=== PATIENT | female | born 1960 | race Caucasian/White ===

== ENCOUNTER 2021-05-04 01:20 | Day surgery (SDC) | payer OTHER, SELFPAY ==
[2021-05-03 15:04] VITALS: BMI 25.7
--- NOTE | 2021-05-03 15:19 | PC.NURSE ---
Report to the Outpatient Waiting Room, entrance under the green pavilion located off [facility], at time 1200 on date 05/04/21. OR Time: 1400. - You will be asked a series of questions to screen for COVID 19 for your protection. - A mask is required within the hospital. - No visitors are allowed at this time. Preoperative COVID Testing Requirements: No COVID Test needed if: (proof is required; if not received patient will have Rapid Test prior to entry) - Patient has received COVID Vaccine at least 14 days prior to procedure date or - Patient has positive COVID test result within last 90 days of surgery date. COVID Test needed if above criteria is not met Patients may have clear liquids (water, carbonated beverages, clear teas, apple juice) until 3 hours prior to surgery with a maximum of 20 ounces. - No food from midnight until time of surgery Take the following medications with a SIP of water the morning of surgery: XANAX (IF NEEDED), WELLBUTRIN, LEVOTHYROXINE, PAIN PILL (IF NEEDED) Medications to discontinue per physician: VITAMINS/SUPPLEMENTS Date to take last dose: NOW Please no make-up, nail turkish, hairspray, perfume, deodorant, or body powder the day of surgery. No jewelry (including any body piercings) or valuables the day of surgery, leave them at home. Please take a shower or bath the night before, or the morning of, surgery with an antibacterial soap. Wear comfortable, loose fitting clothing. - Jewelry must be removed prior to entering the operating room. Rings and piercings that are not removed may be cut off. - The hospital will not accept responsibility for valuables. - Please leave all valuables, including medications, at home the day of surgery. If you are going home after surgery, a licensed drivers license examiner must drive you home. - NO public transportation without another adult. - We recommend that an adult stay with you for 24 hours following discharge. - We also recommend that you do not drive, make important decision, drink alcoholic beverages, or take any drugs that were not prescribed by your health care provider for at least 24 hours after your discharge time. Follow any additional instructions given to you from your surgeon. Telephone instructions given to RADHA MULTANI and asked if any additional questions and then verbalized understanding. Patient advised to call surgeon office or pre surgery nurse liaison [phone] if any additional questions.
[2021-05-04] VITALS (8 sets, daily range): BP systolic 100–114; BP diastolic 60–81; PULSE 75–90; RESP 12–18; TEMP 36.1–37.2; O2SAT 96–99
--- NOTE | ~2021-05-04 | XR_ITS ---
EXAMINATION: XR surgery orthopedic EXAM DATE: 05/04/2021 16:03 INDICATION: Right wrist ORIF. TECHNIQUE: Fluoroscopy used during right radial ORIF performed by Dr. Gasper Canchola MD. Radiolog ist was not present for the imaging or procedure. Total fluoroscopic time of 32 seconds. The DAP fo r this procedure was 0.02 mGym2. A total of 3 images sent to PACS from the exam. FINDINGS: Frontal and lateral images demonstrate comminuted right radial distal fracture with interv al reduction and placement of orthopedic plate dorsally and supporting screws. Correlate with proced ure note. IMPRESSION: Fluoroscopy used during right radial ORIF. Reviewed, dictated and finalized at location A. IC TRANSIT SPECIALIST
--- NOTE | 2021-05-04 12:38 | WPDANESEPPF ---
Anes - Initial Pre Proc Eval Procedure: Operation Date: 05/04/21 14:00 Proposed Procedures p Open Reduction Internal Fixation Versus External Fixation Right Distal Radius - Gasper Canchola MD Date/Time: 05/04/21 12:38 Surgeon: Gasper Canchola MD Pre Op Diagnosis: right distal radius fx Patient Data Age: 61 Gender: F Height: 1.71 m Weight: 75.75 kg Allergies Allergy/AdvReac Type Severity Reaction Status Date / Time No Known Drug Allergies Allergy Unknown unknown Verified 05/04/21 12:24 Home Medications Medication Instructions Recorded Confirmed Type alprazolam 0.5 mg tablet 0.5 mg PO TID 05/03/21 05/04/21 History bupropion HCl 300 mg 24 hr tablet, 300 mg PO QAM 05/03/21 05/04/21 History extended release cholecalciferol (vitamin D3) 125 mcg PO DAILY 05/03/21 05/04/21 History [Vitamin D3] levothyroxine 125 mcg tablet 125 mcg PO DAILY 05/03/21 05/04/21 History propylene glycol 0.6 % eye drops 1 drp EACH EYE BID PRN 05/03/21 05/04/21 History trazodone 50 mg tablet 50 mg PO QHS PRN 05/03/21 05/04/21 History vitamin B complex [B 1 tablet PO DAILY 05/03/21 05/04/21 History Complex-Vitamin B12] Patient hx anesthesia problems: post op nausea/vomiting Family hx anesthesia problems: none Results Review: All pre-operative results and documents have been reviewed as part of the pre-operative evaluation. PENDING SALE TO [facility] Past Medical History Medical History Anxiety Distal radius fracture, right GERD (gastroesophageal reflux disease) Thyroid disease Surgical History Surgical History History of breast surgery History of skin surgery History of subtotal thyroidectomy Family History Family History Mother Family history of diabetes mellitus in first degree relative Diabetes mellitus Hypertension Heart disease Father Family history of alcoholism Other Depression Social History Social History Smoking status: Former smoker Tobacco type: cigarettes Additional smoking assessment comments: OFF AND ON SOCIAL SMOKER IN THE PAST Alcohol intake: current Drinks per week: 2 Substance use: never Substance use type: does not use Living arrangements: with family Gender identity (if verbalized by the patient): Female Spiritual care concerns: No Anes - Eval Final PreProcedure Day of Procedure 05/04/21 12:38 Patient weight: normal Heart: regular rate and rhythm Lungs: clear to auscultation Airway: Mallampati scale class II Neurological: alert and oriented Last oral intake: >/= 8 hours ASA classification: II Emergent: no Anesthetic plan: proceed Anesthesia type and monitoring: general LMA and standard monitoring Results Review: All pre-operative results and documents have been reviewed as part of the pre-operative evaluation. Informed Consent: The patient's anesthetic plan and its attendant risks and benefits were discussed with the patient/family/POA. Questions were solicited and answers provided to the satisfaction of the patient/family/POA.
--- NOTE | 2021-05-04 12:49 | WPDHPUPDATE1 ---
History and Physical Update Update Date/Time: 05/04/21 12:49 History and Physical has been reviewed, including an updated exam of the patient. There are NO changes in the patient's condition. Risks, benefits, and alternatives have been discussed and questions answered. Patient agrees to proceed with procedure.
[2021-05-04] MEDS: KETOROLAC 15 MG/ML VIAL (*BKC) IV PUSH (12:53)
[2021-05-04] MEDS: ACETAMINOPHEN 500 MG TABLET 1000 MG PO (12:53)
[2021-05-04] MEDS: SCOPOLAMINE 1.5 MG PATCH TRANSDERM (12:53)
[2021-05-04] MEDS: LACTATED RINGERS 1,000 ML 30 ML IV CONT (12:54)
--- NOTE | 2021-05-04 13:01 | WPDANESPNB ---
Anes - Peripheral Nerve Block Date/Time: 05/04/21 13:01 I have discussed with the patient/family/POA the placement of a peripheral nerve block for post-operative pain management, including associated risks, benefits, complications, and side effects. Alternative methods of post-operative analgesia were detailed. Questions were solicited and answers provided to the satisfaction of the patient/family/POA. Time-Out: A pre-procedural Time-Out was completed immediately before starting the procedure and confirmed: Patient Identification, Site, Procedure, Patient Position and the Availability of Requisite Equipment. Clinical Indications: Acute post-operative pain management requested by the operative surgeon. Nerve Block Insertion Note Anes-nerve block: supraclavicular right Needle: 22 gauge, stimulating, insulated echogenic needle. Needle length: 50 mm Technique: nerve stimulation lost at (mA) and ultrasound Technique comment: mid2mg morphine 10mg Injectate: bupivacaine 0.5% with epi 5 mcg/ml (30ml no epi) and dexamethasone (mg) (4) Observations: tolerated well Complications: none Procedure start time:: 1250 Procedure end time:: 1257
[2021-05-04] MEDS: ceFAZolin 2 GM/D5W 50 ML 2 GM/50 ML BAG IVPB (13:22)
--- NOTE | 2021-05-04 14:59 | P.OP_ITS ---
Procedure Note - Detailed Date of Procedure 05/04/21 Pre-op Diagnosis Comminuted intra-articular right distal radius fx Post-op Diagnosis same Procedure Performed ORIF right distal radius fracture Surgeon Gasper Canchola MD Family Practice Physician Assistant Sue Anesthesia general and regional Description of Procedure The patient was identified and the proper side identified. In the preop holding area, the anesthesia team performed a right upper extremity block. She was taken back to the operating room, transferred to the or table positioning supine taking care to pad her torso and extremities. After general anesthetic induction and intubation, a nonsterile tourniquet was placed high on the right arm which was prepped and draped in the usual sterile fashion. The extremity was exsanguinated and tourniquet inflated to 200 mmHg remaining up for approximately 50 minutes. A volar longitudinal incision was made along the FCR tendon distally. The subcutaneous tissue was sharply dissected protecting neurovascular structures. The FCR tendon was released from its sheath and retracted ulnarly. This allowed for the deep fascia of the forearm to be divided longitudinally in line with the incision. Care was taken to protect the volar compartment structures as well as the radial nerve and radial vascular structures. The pronator quadratus was elevated off of the distal radius allowing for inspection of the fracture site. The fracture fragments were disimpacted and able to be realigned virtually anatomically with fluoroscopic assistance. They were secured in this position with a right, wide, short plate from the DVR set. The plate was applied with fluoroscopic visualization to avoid penetration of the joint and to ensure optimal hardware placement. Once the plate was secure the overall construct was assessed fluoroscopically on the AP and lateral views. The virtually anatomic reduction was held very nicely. The construct was stable. The wound was irrigated with a copious amount of sterile antibiotic solution. Skin edges were reapproximated with 2-0 Quill and then tissue adhesive for the skin. Sterile dressing was applied. Tourniquet was released. A well-padded short-arm volar wrist splint was fashioned. The procedure was well tolerated. There were no known intraoperative complications. Estimated blood loss was negligible. Estimated Blood Loss 10 Tourniquet Time 50 Drains No Packing No Pathology none sent Complications No immediate complications Condition stable Disposition PACU
[2021-05-04] MEDS: ONDANSETRON INJ 4 MG/2 ML VIAL IV PUSH (16:00)
== END 2021-05-04 16:45 | disposition home or self-care (01) ==
PROVIDERS: Visit Provider Orthopaedic Surgery
PROC: (CPT 25575; principal; 2021-05-04 14:00)
DX: S52.571A Other intraarticular fracture of lower end of right radius, initial encounter for closed fracture (principal); G89.18 Other acute postprocedural pain; W19.XXXA Unspecified fall, initial encounter; K21.9 Gastro-esophageal reflux disease without esophagitis; E07.9 Disorder of thyroid, unspecified; F41.9 Anxiety disorder, unspecified; Z87.891 Personal history of nicotine dependence
CPT/HCPCS: 25608; 64415; A4565; A9270; C1713; J0690; J1100; J1885; J2250; J2270; J2405; J2704; J7120

== ENCOUNTER 2021-07-25 09:00 | Outpatient (RCR) | payer OTHER, SELFPAY ==
--- NOTE | 2021-06-26 11:07 | OTOPEVAL ---
OCCUPATIONAL THERAPY EVALUATION REPORT 06/26/21 Thank you for referring Lizzeth Aaron to [facility].? The patient is scheduled to be seen for therapy? 1-2x/week for 4 weeks. Please review, sign, date and return this plan of care MANE. I agree with and certify that the following plan of care is medically necessary. Referring Physician Date Referring Provider: Gasper Canchola MD *OT Outpatient Evaluation Start: 06/26/21 10:04 Therapy Assessment Status Assessment Status Assessment Status Evaluation Outpatient Past Medical History Past Medical History Source of Past Medical History Recalled from Previous Visit, Confirmed with Patient/Family Neurological History Hx Neurological Disorders No Significant History Cardiovascular History Hx Cardiac Disorders No Significant History Respiratory History Hx COVID-19 Yes: JAN 2021 - LOSS OF TASTE/ SMELL, FEVER, NAUSEA Gastrointestinal History Hx Gastrointestinal Disorders No Significant History Genitourinary History Hx Genitourinary Disorders No Significant History Musculoskeletal History Hx Back Pain Yes: LOWER Hx Fractures Yes: RT WRIST Hematological History Hx Hematological Disorders No Significant History Endocrine History Hx Hypothyroidism Yes Hx Thyroidectomy Yes: PARTIAL D/T BENIGN MASS HEENT History Hx HEENT Disorders No Significant History Integumentary History Hx Skin Disorders No Significant History Reproductive History Hx Post Menopausal Yes Psychosocial History Hx Anxiety Yes Pain History History of Any Previous or Ongoing No Significant History Instance of Pain Anesthesia History Hx Anesthesia Reactions No Significant History Other History Hx Other Surgeries Yes: LT BREAST NODULE REMOVED Evaluation Information Problem Diagnosis Right distal radius fracture Additional Evaluation Detail ORIF 05/04/20 Subjective Information 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 She is to Family follow up with MD on 07/27/21 to see if she is ready to return to work. At home she reports she is heavily favoring the left hand and adapting how she uses the right. Difficulties with feeding herself and any sort of lifting. She is starting her car with the left hand. 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
--- NOTE | 2021-07-25 09:33 | OTOPEVAL ---
OCCUPATIONAL THERAPY RE-EVALUATION REPORT AND DISCHARGE NOTE 07/25/21 Lizzeth is just shy of 12 weeks post ORIF of a right distal radius fracture. She has attended 6 therapy sessions and has made excellent progress with ROM and functional strength. At this time she is currently independent with HEP to continue to work on her residual deficits and is ready for discharge. Thank you for referring Lizzeth Aaron to [facility]. Please review, sign, date and return this D/C Note MANE. I agree with and certify that the following plan of care is medically necessary. Referring Physician Date Referring Provider: Gasper Canchola MD Re-Evaluation Information Diagnosis Right distal radius fracture Additional Evaluation Detail ORIF 05/04/20 Subjective Information Lizzeth reports improved Query Text:As Reported By Patient/ mobility and strength over the Family past month. She states she is now using her right hand to feed herself and start her car . She is progressing with lifting her coffee pot, stating it's 90% better . She is back to doing yard work. Pain Assessment Timing of Pain Assessment Timing of Pain Assessment Re-assessment Pain Scale Pain Scale Used Numeric (1 - 10) Self Report Pain Assessment Right Wrist(s) Reported Pain Level 2 Pain Description Aching Other Pain Description Stiff Lowest Pain Intensity 2 Greatest Pain Intensity 4 Pain Score Pain Score 2: Self Report Interventions Used Interventions Used By Clinicians Education,Exercise,Paraffin Upper Extremity Range of Motion Elbow/Forearm Range of Motion Right Forearm Supination - Active 80 Forearm Pronation - Active 85 Elbow/Forearm Range of Motion Comments Supination improved from 50* Pronation improved from 75* Wrist Range of Motion Right Wrist Flexion - Active 60 Wrist Flexion - Passive 67 Wrist Extension - Active 50 Wrist Extension - Passive 60 Wrist Radial Deviation - Active 20 Wrist Ulnar Deviation - Active 25 Wrist Range of Motion Comments Flexion improved from 45* Extension improved from 20* RD improved from 10* UD improved from 15* Finger Range of Motion Right Reason Not Measured WNL/Right Thumb Range of Motion Right Reason Not Measured WNL/Right Hand Habilitation Training Specialist/Pinch Strength Assessment Hand Left Habilitation Training Specialist Strength (lbs) 71 Hand Habilitation Training Specialist/Pinch Strength Comments Norm: 48 lbs. Right Habilitation Training Specialist Strength (lbs) 38 Hand Habilitation Training Specialist/Pinch Strength Comments Norm: 51 lbs. Patient is currently
== END 2021-07-26 08:40 | disposition home or self-care (01) ==
LOC: ANHOT 09:00
PROVIDERS: Visit Provider Orthopaedic Surgery
DX: S52.571D Other intraarticular fracture of lower end of right radius, subsequent encounter for closed fracture with routine healing (principal)
CPT/HCPCS: 97018; 97110; 97165

== ENCOUNTER 2021-08-02 10:13 | Outpatient (CLI) | payer OTHER, SELFPAY ==
--- NOTE | ~2021-08-02 | DEXA_ITS ---
Bone Density Report Name: RADHA MULTANI Age: 61 Sex: Female Ethnicity: White Date of : 1960 Indication: postmenopausal; screening for osteoporosis; height loss; prior fracture; Referring Provider: ANN RODRIGUEZ Study: Bone densitometry was performed. Exam Date: August 02, 2021 Accession number: [id number] Bone Density: Region BMD T-score Z-score Classification AP Spine(L1-L4) 0.894 -1.4 0.1 Osteopenia Femoral Neck (Left) 0.702 -1.3 0.0 Osteopenia Total Hip (Left) 0.821 -1.0 0.0 Normal Femoral Neck (Right) 0.689 -1.4 -0.1 Osteopenia Total Hip (Right) 0.855 -0.7 0.3 Normal Femoral Neck Mean 0.696 -1.4 -0.1 Osteopenia Total Hip Mean 0.838 -0.9 0.1 Normal World Health Organization criteria for BMD impression classify patients as: Normal (T-score at or above -1.0), Osteopenia (T-score between -1.0 and -2.5), or Osteoporosis (T-score at or below -2.5). 10-year Fracture Risk(1): Major Osteoporotic Fracture 14% Hip Fracture 1.1% Reported Risk Factors: [place] (), Neck BMD=0.689, BMI=26.6, previous fracture (1) FRAX(R) Version 3.08. Fracture probability calculated for an untreated patient. Fracture probability may be lower if the patient has received treatment. Clinical Information Provided by Patient: Has had a low trauma fracture Has used the following medications: Vitamin D, Calcium Patient maximum height was 68 Menopause Age: 56 No regular weight bearing exercise Drinks caffeinated beverages Onset of menses at age 15 Number of children 2 Impression: The patient has low bone mass, based on the Total Spine T-score. The patient has risk factors, including: previous fracture. Discussion: BONE DENSITY IS LOW AT ONE OR MORE SKELETAL SITES. This patient's lowest T-score is low at one or more skeletal sites. It meets the World Health Organization's (WHO) criteria for ?low bone mass? (T-score between -1.0 and -2.5). The patient's 10-year risk of fracture as calculated by FRAX is less than the threshold where pharmacological therapy is recommended by the National Osteoporosis Foundation (NOF). However, all treatment decisions require clinical judgment and consideration of individual patient factors, including patient preferences, comorbidities, previous drug use, risk factors not captured in the FRAX model (e.g., frailty, falls, vitamin D deficiency, increased bone turnover, interval significant decline in bone density) and possible under or overestimation of fracture risk by FRAX. The patient should follow a healthful lifestyle (good nutrition with adequate calcium and vitamin D, and appropriate weight-bearing exercise). Follow-Up: Consider repeating this study in 2 to 3 years to reassess this patient's status, or sooner if there is some new clin
== END 2021-08-02 10:14 | disposition home or self-care (01) ==
LOC: CHSIMG 10:17
PROVIDERS: Visit Provider Orthopaedic Surgery
DX: Z78.0 Asymptomatic menopausal state (principal)
CPT/HCPCS: 77080

== ENCOUNTER 2023-08-14 12:45 | Outpatient (CLI) | payer OTHER, SELFPAY ==
--- NOTE | ~2023-08-14 | XR_ITS ---
Right Knee Technique: AP, lateral, and sunrise views were obtained. Clinical History: Pain Findings: No fracture or dislocation is seen. Osseous alignment is anatomic. Minimal patellar spurrin g noted. Soft tissues are unremarkable. No joint effusion is seen. Impression: No acute abnormality. Minimal patellar spurring. Reviewed, dictated and finalized at [facility]. Impression: No acute abnormality. Minimal patellar spurring.
== END 2023-08-14 12:46 | disposition home or self-care (01) ==
LOC: ANHIMG 12:52
PROVIDERS: Visit Provider Internal Medicine
DX: M25.761 Osteophyte, right knee (principal)
CPT/HCPCS: 73564

== ENCOUNTER 2023-10-24 16:33 | Outpatient (CLI) | payer OTHER, SELFPAY ==
--- NOTE | ~2023-10-24 | MR_ITS ---
EXAMINATION: MR ankle RT wo con DATE: 10/24/2023 17:31 INDICATION: Right ankle pain, fall one month ago. TECHNIQUE: Magnetic resonance imaging (MRI) of the right ankle was performed without intravenous cont rast. Sequences included sagittal, coronal, and axial proton-density weighted fast spin echo without and with fat saturation. COMPARISON: None. FINDINGS: Medial ankle ligaments: Deep and superficial deltoid ligaments as well as the spring ligament are normal. Lateral ankle ligaments: The anterior and posterior inferior tibiofibular ligaments are normal. The anterior talofibular, calc aneofibular and posterior talofibular ligaments are normal. Tendons: Achilles tendon is normal. Thickening and intermediate signal intensity within the peroneus longus te ndon as it passes under the foot. Thinning and abnormal intermediate signal in the distal peroneus br isak tendon. The tibialis anterior and extensor hallucis longus and extensor digitorum longus tendons are normal. The tibialis posterior, and flexor digitorum longus are normal. Fluid within the sheath of the flexor pollicis longus extending from the level of the ankle joint to the knot of Herminio. The F HL tendon is intact. Plantar fascia: Plantar enthesopathy. Mild thickening of the proximal plantar fascia Bones/other: No abnormal focal or diffuse marrow signal. Fluid: No abnormal collection, except as noted above. IMPRESSION: Flexor hallucis longus tenosynovitis. Partial tear of the peroneus brevis tendon. Peroneus longus ten dinosis. Mild plantar fasciitis. Reviewed, dictated and finalized at location K. IMPRESSION: Flexor hallucis longus tenosynovitis. Partial tear of the peroneus brevis tendo n. Peroneus longus tendinosis. Mild plantar fasciitis.
== END 2023-10-24 16:34 | disposition home or self-care (01) ==
LOC: ANHIMG 16:33
PROVIDERS: Visit Provider Internal Medicine
DX: M25.571 Pain in right ankle and joints of right foot (principal); M65.871 Other synovitis and tenosynovitis, right ankle and foot; S96.811A Strain of other specified muscles and tendons at ankle and foot level, right foot, initial encounter; M72.2 Plantar fascial fibromatosis
CPT/HCPCS: 73721

== ENCOUNTER 2024-10-05 11:00 | Outpatient (RCR) | payer OTHER, SELFPAY ==
--- NOTE | 2024-08-12 16:23 | OPREHPOC ---
Outpatient Therapy Plan of Care This is a Multidisciplinary Plan of Care that may contain components documented by all disciplines (PT, OT, and ST.) PT Problem 1 PT Problem #1 Knowledge Deficit PT Goal 1 Goal / Goal Update *independent with HEP Target Visit 6 PT Problem 2 PT Problem #2 Pain PT Goal 1 Goal / Goal Update * pt report pain at worst of 3/10 with increased activity Target Visit 6 PT Problem 3 PT Problem #3 Impaired Strength PT Goal 1 Goal / Goal Update *increase L hip and knee strength for stability to knee: 1* single leg standing 30 seconds with good stability 2* single leg PF x 10 reps with good stability 3* single leg small squat x 10 reps with good stability Target Visit 6
--- NOTE | 2024-08-12 16:23 | PTOPEVAL1 ---
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, walking 3 miles for fitness, gardening, Reported Pain Level Pain Score 2: Self Report Additional Pain Score Comments pain range in the past week 2-5/10; stiff, sore; lateral distal patella increase pain: end ranges of knee flexion and extension motions decrease pain: sit, rest, tylenol, have tried voltaren cream- not really help have not used heat/ice instruct on PRN use reports with sleeping- posterior knee pain, tends to sleep on her sides with pillow between knees PRN; awaken from sleep 2-3 x/night with rolling over Assessment PT Clinical Summary Lizzeth has the diagnosis of chronic L knee pain, with moderate knee OA per xray. LE functional scale rating of 20% limitation in activity level. Pain and weakness, with stepping up with leading L foot. 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 Sleeping is disrupted with pain changing positions in bed. With the evaluation, she has good flexibility of hips and knees, with decreased strength of L LE with weight bearing, single leg standing activity on L; pain over lateral joint line. Skilled PT services are indicated for modalities to decrease pain, therapeutic exercises to increase L hip and knee strength and education for HEP and posture. Plan of Care Interventions Electrical Stimulation,Hot Pack/Cold Pack,Manual Therapy,Neuro Re-education,Patient/Caregiver Education,Therapeutic Activities,Therapeutic Exercise,Ultrasound,Other Other Interventions taping PT Services Indicated Yes Treatment Frequency and 1-2x/wk for 6 visits Duration These treatments will address the objective and functional deficits as defined above. The patient will be advanced safely and appropriately in order for the patient to progress towards his/her prior level of function. Additional exercises will be introduced and as well as a comprehensive home exercise program upon discharge, if needed, ?to ensure carryover of functional gains achieved in the clinic. This treatment plan has been reviewed and agreement upon by the patient.
--- NOTE | 2024-10-05 11:39 | OPREHPOC ---
Outpatient Therapy Plan of Care This is a Multidisciplinary Plan of Care that may contain components documented by all disciplines (PT, OT, and ST.) PT Problem 1 PT Problem #1 Knowledge Deficit PT Goal 1 Goal / Goal Update *independent with HEP 10-05-24 d/c goal met Target Visit 6 Progress Met PT Problem 2 PT Problem #2 Pain PT Goal 1 Goal / Goal Update * pt report pain at worst of 3/10 with increased activity 10-05-24 d/c goal not met, rating 5/10 at worst Target Visit 6 Progress Not Met PT Problem 3 PT Problem #3 Impaired Strength PT Goal 1 Goal / Goal Update *increase L hip and knee strength for stability to knee: 1* single leg standing 30 seconds with good stability 2* single leg PF x 10 reps with good stability 3* single leg small squat x 10 reps with good stability 10-05-24 d/c goal met Target Visit 6
--- NOTE | 2024-10-05 11:39 | PTOPDC ---
Assessment and note entered by Julee Dorado, PT Assessment Status Discharge ICD-10 Condition Codes (PT) Pain in left knee M25.562 Onset Feb 2024 Subjective Information knee is better, but still hurts; can do the steps at work now; have been doing the exercises at home; have been doing the yard work and everything I normally do; ready to be finished with therapy. Reported Pain Level Pain Score Self Report Additional Pain Score Comments pain range in the past week: 1-5/10 increase pain: stairs, uneven ground decrease pain: heat, ice, rest, tylenol reports throbbing pain at night, awaken 1-2x/night when turn over and change positions Assessment PT Clinical Summary Lizzeth has received 5 PT sessions. Compared to the initial evaluation: pain from 2-5/10 to 1-5/10; self assessment LE functional scale rating from 20 to 13% limitation in activity ; reported with sleeping awaken due to knee pain 2-3 to 1-2 x/night; increase strength of L hip and knee; education completed for HEP and pain management. Continues to have pain with single leg, small squat. The goals were achieved, except pain rating at the worst. Discharge PT. She is to continue with her HEP and monitor activity to manage her pain. Plan of Care PT Services Indicated No
== END 2024-10-05 17:15 | disposition home or self-care (01) ==
LOC: ANHPT 11:00
DX: M25.562 Pain in left knee (principal)
CPT/HCPCS: 97110; 97140; 97161; 97530

== ENCOUNTER 2024-12-09 10:18 | Outpatient (CLI) | payer OTHER, SELFPAY ==
--- NOTE | ~2024-12-09 | XR_ITS ---
XR knee LT min 4V 12/09/2024 10:35 Indication: Left knee pain Procedure: 4 views left knee Comparison: No prior studies for comparison. Findings: Mild tricompartment osteoarthritis. There is chondrocalcinosis. No fracture, subluxation or dislocation. No significant joint effusion. Impression: 1: Mild tricompartment osteoarthritis of the left knee. Reviewed, dictated and finalized at location A. Impression: 1: Mild tricompartment osteoarthritis of the left knee.
--- OUTSIDE RECORDS SUMMARY | 2024-12-09 10:32 | XMS_ITS | Clinical Summary ---
Author Organization [facility] [address] Address [address] [place] [address] Care Team Providers Care Damage Adjuster Name Role Phone Daniella Mills NP Primary Care Provider Allergies No known active allergies Medications methocarbamoL (ROBAXIN) 500 mg tablet Take 1 tablet (500 mg total) by mouth Up to 4 a day; 3 Active cholecalciferol (VITAMIN D-3) 5,000 unit tablet Take 1 tablet (5,000 Units total) by mouth daily Active vitamin B complex capsule Take 1 capsule by mouth daily Active calcium carbonate-vitam in D3 1,500 mg (600mg elemental) -800 unit per tablet Take 1 tablet by mouth daily Active diclofenac sodium (VOLTAREN) 1 % gel 5 Active folic acid (FOLVITE) 800 mcg tablet Take 0.5 tablets (400 mcg total) by mouth daily Active ascorbic acid (vitamin C) 1,000 mg tablet Take 1 tablet (1,000 mg total) by mouth daily Active Wellbutrin XL 300 mg 24 hr tablet Take 1 tablet (300 mg total) by mouth every morning 30 tablet 5 Active traZODone (DESYREL) 50 mg tablet Take 1 tablet (50 mg total) by mouth nightly 30 tablet 5 Active levothyroxine (SYNTHROID) 125 mcg tablet Take 1 tablet (125 mcg total) by mouth health care sanitary technician before breakfast 30 tablet 5 12/25/19 25 Active Wellbutrin XL 300 mg 24 hr tablet Take 1 tablet (300 mg total) by mouth every morning 3 11/25/19 25 Discontinu ed(Reorder ) traZODone (DESYREL) 50 mg tablet Take 1 tablet (50 mg total) by mouth nightly 3 11/25/19 25 Discontinu ed(Reorder ) levothyroxine (SYNTHROID) 125 mcg tablet Take 1 tablet (125 mcg total) by mouth 11/25/19 25 Discontinu ed(Reorder ) Hospital, Clinic, or Other Facility Administered Medication Ordered Dose Route Frequency Start Date End Date Status cyanocobalamin (Vitamin B-12) injection 1,000 mcgIndications:B12 deficiency 1000 mcg IM Once 11/24/2024 11/24/2024 Ended Active Problems Problem Noted Date Diagnosed Date Elevated antinuclear antibody (ENRIQUETA) level 2024 Elevated sed rate 11/10/2024 Mixed hyperlipidemia 11/10/2024 B12 deficiency 09/06/2024 Assessment & Plan (09/06/2024 9:05 AM CDT): Controlled Continued on B complex vitamin Arthralgia 09/06/2024 Assessment & Plan (09/06/2024 9:05 AM CDT): Continued on OTC medication as directed as needed for pain Ordered labs Need for vaccination 09/06/2024 Mixed incontinence 09/03/2024 Osteopenia 09/02/2024 Assessment & Plan (09/06/2024 9:04 AM CDT): Continued on calcium supplement vitamin-D supplement Encouraged weight-bearing exercise Postoperative hypothyroidism 09/02/2024 Assessment & Plan (09/06/2024 9:04 AM CDT): Controlled Continued on levothyroxine 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 09/02/2024 Assessment & Plan (09/06/2024 9:06 AM CDT): Controlled Continued on Wellbutrin XL 300 mg daily MAGEN (generalized anxiety disorder) 09/02/2024 Assessment & Plan (09/06/2024 9:06 AM CDT): Controlled, not on medication Will monitor for stability Insomnia due to other mental disorder 09/02/2024 Chronic bilateral low back pain without sciatica 09/02/2024 Chronic pain of left knee 09/02/2024 Encounter to establish care 09/02/2024 Assessment & Plan (09/06/2024 9:04 AM CDT): Reviewed past and current medical history, surgical history, social history, family history, current medications, and allergies. The chart was updated to identify any changes in these areas. Varicose veins of lower extremity 10/24/2023 Assessment & Plan (10/24/2023 10:20 AM CDT): No evidence of bulky varicosities to lower extremities bilaterally, her symptoms sound more like restless leg syndrome. Recommend repeat evaluation by her PCP. History of colon polyps 03/08/2023 Irritable bowel syndrome wit h both constipation and diarrhea 08/02/2022 Functional dyspepsia 08/02/2022 Encounter for screening colonoscopy 08/02/2022 Overview (08/02/2022): Added automatically from request for surgery [id number] Resolved Problems Problem Noted Date Diagnosed Date Resolved Date Other constipation 09/02/2024 Encounters Date Type Department Care Team Description 12/03/2024 8:00 AM CDT - 12/03/2024 11:59 PM CDT Hospital Encounter [facility] [address] [place], [place] [id number] Osteopenia, unspecified location Discharge Disposition: Discharge to home or self care 11/24/2024 8:15 AM CDT Clinical Support [facility] Primary Care at [address] [place] [address] B12 deficiency (Primary Dx) 11/24/2024 Telephone [facility] Medical [facility] Primary Care at [address] [place] [address] Daniella Mills NP 11/12/2024 Telephone [facility] Medical [facility] Primary Care at [address] [place] [phone] Daniella Mills NP 11/12/2024 Telephone [facility] Primary Care at [address] [place] [phone] Daniella Mills NP 11/12/2024 Telephone [facility] Primary Care at [address] [place] [phone] Daniella Mills NP Medical Question/Miscellaneous 11/12/2024 Letter (Out) [facility] Primary Care [address] [place] [address] [address] [place] [phone] 11/10/2024 Telephone [facility] Primary Care at [address] [place] [phone] Daniella Mills NP 11/10/2024 Results Follow-Up [facility] Primary Care at [address] [place] [phone] Daniella Mills, MARIE Rheumatoid factor, Erythrocyte sedimentation rate, ENRIQUETA ab ql w/rflx to ENRIQUETA qn, Additional followed-up results: 11/05/2024 9:55 AM CDT Lab [facility] [address] [place] [id number] Arthralgia, unspecified joint; B12 deficiency; Screening for diabetes mellitus; Encounter for vitamin deficiency screening; Postoperative hypothyroidism; Screening, lipid; Need for hepatitis C screening test; Need for hepatitis B screening test from Last 3 Months Immunizations Immunization Administration Dates Next Due Influenza, Quadrivalent, Spl it, Preservative Free, Intramuscular 02/18/2023 Tdap 07/02/2020,07/08/2006 ZOSTER Recombinant 09/02/2024 Surgical History Surgery Date Site/Laterality Comments COLONOSCOPY 08/27/2022 - 09/26/2022 12 years ago OTHER SURGICAL HISTORY Right wrist surgery THYROIDECTOMY 04/29/2008 - 04/28/2009 Medical History Medical History Date Comments GERD (gastroesophageal reflux disease) Thyroid disease B12 deficiency Dry eyes Osteopenia Osteoarthritis L knee Depression Anxiety History of rectal polyps Bleeding internal hemorrhoids Family History Medical History Relation Name Comments Heart disease Brother 1 Dylan Parkinsonism Brother 1 Dylan Rashes / Skin problems Brother 2 Bobby Cancer Brother 3 Chip Thyroid cancer Brother 3 Chip Alcohol abuse Father Herminio Diabetes Mother Kacey ESKD Requiring Dialysis Mother Kacey Heart disease Mother Kacey Kidney disease Mother Kacey Osteoporosis Mother Kacey Hearing loss Sister 1 Roxann Heart disease Sister 1 Roxann Rashes / Skin problems Sister 2 Subha Clotting disorder Sister 3 Kortney factor 2 Sister 3 Kortney Relation Name Status Comments Brother 1 Dylan Alive Brother 2 Bobby Alive Brother 3 Chip Alive Father Herminio Alive Mother Kacey Alive Sister 1 Roxann Alive Sister 2 Subha Alive Sister 3 Kortney Alive Social History Tobacco Use Types Packs/Day Years Used Date Smoking Tobacco: Never Smokeless Tobacco: Never Tobacco Cessation:Counseling Given: Not Answered AUDIT-C Answer Date Recorded Q1: How often do you have a drink containing alcohol? 4 or more times a week 09/02/2024 Q2: How many drinks containi ng alcohol do you have on a typical day when you are drinking? 3 or 4 Q3: How often do you have si x or more drinks on one occasion? Never 09/02/2024 PHQ-2 Answer Date Recorded PHQ-2 Total Score (If total score is 3 or more points, staff should administer the PHQ-9) 2 09/02/2024 PHQ-9 Answer Date Recorded PHQ-9 Total Score 6 09/02/2024 Personal Safety Answer Date Recorded Have you ever been in or are you currently in a harmful physical or emotional relationship or is someone making you feel afraid or unsafe? 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 Gender Identity Not on file Sexual Orientation Not on file Obstetrics History Last Filed Vital Signs Vital Sign Reading Time Taken Comments Blood Pressure 128/68 09/02/2024 3:07 PM CDT Pulse 79 09/02/2024 3:07 PM CDT Temperature 36.3 C (97.4 F) 09/02/2024 3:07 PM CDT Respiratory Rate 14 09/02/2024 3:07 PM CDT Oxygen Saturation 97% 09/02/2024 3:07 PM CDT Inhaled Oxygen Concentration - - Weight 83.3 kg (183 lb 9.6 oz) 09/02/2024 3:07 P M CDT Height 168.5 cm (5' 6.34) 09/02/2024 3:07 PM CD T Body Mass Index 29.33 09/02/2024 3:07 PM CDT Plan of Treatment Health Maintenance Due Date Last Done Comments Breast Cancer Screening-Mammogram 1961 Regular Well Visit/Exam 18-64 1979 Covid-19 Vaccine (4 - 2023-2 5 season) 2023 11/23/2021, 05/06/2020, 04/15/2020 Zoster Vaccine (2 of 2) 10/28/2024 09/02/2024 Influenza Vaccine (#1) 2024 02/18/2023 Colon Cancer Screening-Colonoscopy 07/21/2025 07/22/2023, 09/12/2022 Depression Screening 09/02/2025 09/02/2024, 09/02/2024 Cervical Cancer Screening 12/10/20252022, 12/10/2022 DTaP/Tdap/Td Vaccine (3 - Td or Tdap) 07/02/2030 07/02/2020, 07/08/2006 Hepatitis B Screening Completed 11/05/2024 Hepatitis C Screening Completed 11/05/2024 Pneumococcal vaccine <65 Aged Out No longer eligible based on patient's age to complete this topic Procedures Procedure Name Priority Date/Time Associated Diagnosis Comments DEXA AXIAL SKELETON BONE DENSITY 1 OR MORE SITES Schedule Routine, Read Routine (OP Routine) 12/03/2024 8:24 AM CDT Osteopenia, unspecified location EGFR Routine 11/05/2024 10:24 AM CDT Screening for diabetes mellitus DIFFERENTIAL AUTO Routine 11/05/2024 10:24 AM CDT B12 deficiency Arthralgia, unspecified joint CBC WITH AUTO DIFFERENTIAL Routine 11/05/2024 10:24 AM CDT B12 deficiency Arthralgia, unspecified joint COMPREHENSIVE METABOLIC PANEL Routine 11/05/2024 10:24 AM CDT Screening for diabetes mellitus LIPID PANEL Routine 11/05/2024 10:24 AM CDT Screening, lipid THYROID FUNCTION CASCADE Routine 11/05/2024 10:24 AM CDT Postoperative hypothyroidism VITAMIN D 25 HYDROXY Routine 11/05/2024 10:24 AM CDT Encounter for vitamin deficiency screening HEMOGLOBIN A1C Routine 11/05/2024 10:24 AM CDT Screening for diabetes mellitus VITAMIN B12 Routine 11/05/2024 10:24 AM CDT B12 deficiency METHYLMALONIC ACID, SERUM Routine 11/05/2024 10:24 AM CDT B12 deficiency ENRIQUETA QUALITATIVE WITH REFLEX TO ENRIQUETA QUANTITATIVE Routine 11/05/2024 10:24 AM CDT Arthralgia, unspecified joint ERYTHROCYTE SEDIMENTATION RATE Routine 11/05/2024 10:24 AM CDT Arthralgia, unspecified joint RHEUMATOID FACTOR Routine 11/05/2024 10:24 AM CDT Arthralgia, unspecified joint HEPATITIS B SURFACE ANTIGEN Routine 11/05/2024 10:24 AM CDT Need for hepatitis B screening test HEPATITIS B CORE ANTIBODY, TOTAL Routine 11/05/2024 10:24 AM CDT Need for hepatitis B screening test HEPATITIS B SURFACE ANTIBODY (IMMUNE STATUS) Routine 11/05/2024 10:24 AM CDT Need for hepatitis B screening test HEPATITIS C ANTIBODY Routine 11/05/2024 10:24 AM CDT Need for hepatitis C screening test COLONOSCOPY 07/22/2023 10:12 AM CDT PAP ONLY Routine 12/10/2022 from Last 3 Months or Most Recently Relevant to Health Maintenance Results * Dexa Axial Skeleton Bone Density 1 or 2 Site (12/03/2024 8:24 AM CDT) Anatomical Region Laterality Modality Body N/A Mammography 12/03/2024 1:37 PM CDT Narrative 12/03/2024 1:40 PM CDT EXAM DESCRIPTION: DEXA AXIAL SKELETON BONE DENSITY 1 OR MORE SITES REASON FOR STUDY: 64 y/o year old F with given history of: osteopenia Hematology Supervisor/Model: sevenload A (S/N [id number]) Facility LSC value of 0.022 for the AP spine, 0.027 for the femur, and 0.023 for the forearm. CLINICAL INFORMATION: Current height: 66 inches Maximum height: 66 inches Weight: 183 pounds Risk factors: Postmenopausal, adult fracture COMPARISON: None available FINDINGS: AP LUMBAR SPINE L1-L4: Total BMD is 0.859 g/cm2 T-score is -1.7 LEFT HIP: Total BMD is 0.830 g/cm2 T-score is -0.9 Femoral neck BMD is 0.640 g/cm2 T-score is -1.9 FRAX: 10 year risk for a major osteoporotic fracture is 16 %, 10 year risk for a hip fracture is 2.0 % Per National Osteoporosis Foundation guidelines, this patient does not meet the criteria for pharmacological treatment of patients with FRAX 10 year major osteoporotic fracture risk scores of = or greater than 20% or a 10 year probability of a hip fracture = or greater than 3%, to reduce fracture risk. Additional factors such as frequent falls are not represented in FRAX and warrant individual clinical judgment. IMPRESSION: 1. Low Bone Mass. REFERENCE: Bone mineral density: T-Score: Normal (T-score above or = -1.0) Low bone mass (T-score between -1.0 and -2.5) replaces the previously used term osteopenia Osteoporosis (T-score = or below -2.5) Z-Score: Within the expected range for age (Z-score above -2.0) Below the expected range for age (Z-score is -2.0 or below) Please see below follow up recommendations. Medical evaluation for secondary causes of low bone mineral density may be appropriate. FRAX is a World Health Organization validated fracture risk assessment tool that calculates a person's 10 year probability of a major osteoporosis related fracture and hip fracture. According to the National Osteoporosis Foundation guidelines, postmenopausal women and men age 50 or older with low bone mass and a 10 year probability of a major osteoporosis related fracture = or greater than 20% or a 10 year probability of a hip fracture = or greater than 3% should be considered for pharmacological treatment for the prevention of osteoporosis. For further information, including treatment recommendations, please refer to the 2019 ISCD Official Positions (http://www.iscd.org) and the NOF's Clinician's Guide to Prevention and Treatment of Osteoporosis (http://www.nof.org/professionals/clinical-guidelines) THIS IS AN ELECTRONICALLY VERIFIED FINAL REPORT 12/03/2024 1:40 PM - Electronically signed by Darrian Mckeon M.D. MF: [email or web address] Report ID: [id number] Reading Location: [place] [address] Procedure Note Darrian Mckeon MD - 12/03/2024 EXAM DESCRIPTION: DEXA AXIAL SKELETON BONE DENSITY 1 OR MORE SITES REASON FOR STUDY: 64 y/o year old F with given history of: osteopenia Hematology Supervisor/Model: sevenload A (S/N [id number]) Facility LSC value of 0.022 for the AP spine, 0.027 for the femur, and0.023 for the forearm. CLINICAL INFORMATION: Current height: 66 inches Maximum height: 66 inches Weight: 183 pounds Risk factors: Postmenopausal, adult fracture COMPARISON: None available FINDINGS: AP LUMBAR SPINE L1-L4: Total BMD is 0.859 g/cm2 T-score is -1.7 LEFT HIP: Total BMD is 0.830 g/cm2 T-score is -0.9 Femoral neck BMD is 0.640 g/cm2 T-score is -1.9 FRAX: 10 year risk for a major osteoporotic fracture is 16 %, 10 year risk for ahip fracture is 2.0 % Per National Osteoporosis Foundation guidelines, this patient does notmeet the criteria for pharmacological treatment of patients with FRAX 10 yearmajor osteoporotic fracture risk scores of = or greater than 20% or a 10 year probability of a hip fracture = or greater than 3%, to reduce fracturerisk. Additional factors such as frequent falls are not represented in FRAX and warrant individual clinical judgment. IMPRESSION: 1. Low Bone Mass. REFERENCE: Bone mineral density: T-Score: Normal (T-score above or = -1.0) Low bone mass (T-score between -1.0 and -2.5) replaces thepreviously used term osteopenia Osteoporosis (T-score = or below -2.5) Z-Score: Within the expected range for age (Z-score above -2.0) Below the expected range for age (Z-score is -2.0 or below) Please see below follow up recommendations. Medical evaluation forsecondary causes of low bone mineral density may be appropriate. FRAX is a World Health Organization validated fracture risk assessmenttool that calculates a person's 10 year probability of a major osteoporosisrelated fracture and hip fracture. According to the National OsteoporosisFoundation guidelines, postmenopausal women and men age 50 or older with low bonemass and a 10 year probability of a major osteoporosis related fracture = or greater than 20% or a 10 year probability of a hip fracture = or greaterthan 3% should be considered for pharmacological treatment for the preventionof osteoporosis. For further information, including treatment recommendations, please referto the 2019 ISCD Official Positions (http://www.iscd.org) and the NOF's Clinician's Guide to Prevention and Treatment of Osteoporosis (http://www.nof.org/professionals/clinical-guidelines) THIS IS AN ELECTRONICALLY VERIFIED FINAL REPORT 12/03/2024 1:40 PM - Electronically signed by Darrian Mckeon M.D. MF: [email or web address] Report ID: [id number] Reading Location: [place] [address] us Daniella Mills PLANER OPERATOR IM DXA PROCEDURES Final Result * (ABNORMAL) ENRIQUETA ab ql w/rflx to ENRIQUETA qn (11/05/2024 10:24 AM CDT) ENRIQUETA Positive( A) Comment: Interpretive Data Normal range for ENRIQUETA Qualitative Antibody = Negative. 1. ENRIQUETA is performed using indirect immunofluorescence against HEp-2 cells 2. ENRIQUETA titers are performed on all positive qualitative results. 3. A significantly positive ENRIQUETA result is defined as a positive nuclear fluorescence at a titer of 1:80 or greater. 4. 15% of normal people above age 65 have significantly positive ENRIQUETA results. 5% or less of normal people age 65 or under have significantly positive ENRIQUETA results. Current interpretive data was last revised on 2019. Testing performed by: [facility], [address] [place]., [address] ENRIQUETA, quant 1:160 titer PAOLA ELY Comment:Testing performed by : [facility], [address] [place]., [address] ENRIQUETA, interp Speckled( A) PAOLA ELY Comment:Testing performed by : [facility], [address] [place]., [address] Blood 11/05/2024 10:2 4 AM CDT 11/05/2024 3:09 PM CDT us Daniella Mills NP LAB BLOOD ORDERABLES Final Resul t PA[facility]A [address] [facility] Department [place] [address] * eGFR (11/05/2024 10:24 AM CDT) eGFR 83 >=60 mL/min/1. 73 m2 Comment: Interpretive Data Reference Interval Normal >/= 90 mL/min/1.73m2 Mildly decreased* 60 - 89 mL/min/1.73m2 Mildly to moderately decreased 45 - 59 mL/min/1.73m2 Moderately to severely decreased 30 - 44 mL/min/1.73m2 Severely decreased 15 - 29 mL/min/1.73m2 Kidney Failure < 15 mL/min/1.73m2 *Relative to young adult level Estimated glomerular filtration rate is determined by the 2020 CKD-EPI equation recommended by the National Kidney Foundation (A Unifying Approach to GFR Estimation: Recommendations of the NKF-ASK Task Force on Reassessing the Inclusion of Race in Diagnosing Kidney Disease, JASN 2020). The CKD-EPI equation should not be used for patients with unstable renal function and has not been validated in children and those over 70. Current interpretive data was last reviewed 2021. Testing performed by: [address] [address] Blood 11/05/2024 10:2 4 AM CDT 11/05/2024 11:36 AM CDT us Daniella Mills NP LAB BLOOD ORDERABLES Final Resul t [facility] [address] [facility] Department [place] [address] * Differential, auto (11/05/2024 10:24 AM CDT) Neutrophil abs 2.74 1.50 - 6.50 K/cumm Comment:Testing performed by : [address] [address] Imm gran abs 0.02 0.00 - 0.10 K/cumm PAOLA Comment:Testing performed by : [address] [address] Lymphocyte abs 2.03 0.80 - 3.30 K/cumm PAOLA Comment:Testing performed by : [address] [address] Monocyte abs 0.31 0.20 - 0.80 K/cumm PAOLA Comment:Testing performed by : [address] [address] Eosinophil abs 0.03 0.00 - 0.50 K/cumm PAOLA Comment:Testing performed by : [address] [address] Basophil abs 0.01 0.00 - 0.10 K/cumm PAOLA Comment:Testing performed by : [address] [address] Neutrophil pct 53.3 % PAOLA Comment: Interpretive Data Percent cell count reference ranges are not reported, since discordance with absolute values may lead to misinterpretation of CBC data. Current Interpretive Data was last revised on 2017. Testing performed by: [address] [address] Imm gran pct 0.4 % [facility] Comment: Interpretive Data Percent cell count reference ranges are not reported, since discordance with absolute values may lead to misinterpretation of CBC data. Current Interpretive Data was last revised on 2017. Testing performed by: [address] [address] Lymphocyte pct 39.5 % [facility] Comment: Interpretive Data Percent cell count reference ranges are not reported, since discordance with absolute values may lead to misinterpretation of CBC data. Current Interpretive Data was last revised on 2017. Testing performed by: [address] [address] Monocyte pct 6.0 % [facility] Comment: Interpretive Data Percent cell count reference ranges are not reported, since discordance with absolute values may lead to misinterpretation of CBC data. Current Interpretive Data was last revised on 2017. Testing performed by: [address] [address] Eosinophil pct 0.6 % [facility] Comment: Interpretive Data Percent cell count reference ranges are not reported, since discordance with absolute values may lead to misinterpretation of CBC data. Current Interpretive Data was last revised on 2017. Testing performed by: [address] [address] Basophil pct 0.2 % [facility] Comment: Interpretive Data Percent cell count reference ranges are not reported, since discordance with absolute values may lead to misinterpretation of CBC data. Current Interpretive Data was last revised on 2017. Testing performed by: [address] [address] Blood 11/05/2024 10:2 4 AM CDT 11/05/2024 11:06 AM CDT us Daniella Mills NP LAB BLOOD ORDERABLES Final Resul t [facility] [address] [facility] Department [place] [address] * Thyroid Function [place] (11/05/2024 10:24 AM CDT) TSH 0.60 0.30 - 4.20 mcIUnit/mL Comment:Testing performed by : [address] [address] Blood 11/05/2024 10:2 4 AM CDT 11/05/2024 11:36 AM CDT us Daniella Mills PLANER OPERATOR LAB BLOOD ORDERABLES Final Resul t [facility] [address] [facility] Department of Laboratories [place], [place] [id number] * CBC with auto differential (11/05/2024 10:24 AM CDT) Pathologist [facility] WBC 5.14 3.80 - 9.90 K/cumm Comment:Testing performed by : [address] [address] Hgb 13.0 11.9 - 15.5 g/dL PAOLA Comment:Testing performed by : [address] [address] Hct 38.9 35.6 - 45.5 % PAOLA Comment:Testing performed by : [address] [address] Plt 266 150 - 400 K/cumm PAOLA Comment:Testing performed by : [address] [address] MPV 9.8 9.1 - 12.3 fL PAOLA Comment:Testing performed by : [address] [address] RBC 4.08 3.90 - 5.20 M/cumm PAOLA Comment:Testing performed by : [address] [address] MCV 95.3 81.3 - 96.4 fL PAOLA Comment:Testing performed by : [address], [address] MCH 31.9 27.1 - 33.3 pg PAOLA ELY Comment:Testing performed by : [facility], [address] [place] [address]., [address] MCHC 33.4 32.3 - 35.7 g/dL PAOLA ELY Comment:Testing performed by : [address] [address] RDW CV 13.3 11.1 - 14.9 % PAOLA Comment:Testing performed by : [address] [address] RDW SD 46.4 35.7 - 48.1 fL PAOLA Comment:Testing performed by : [address] [address] NRBC abs 0.00 0.00 - 0.01 K/cumm PAOLA Comment:Testing performed by : [address] [address] Blood 11/05/2024 10:2 4 AM CDT 11/05/2024 11:06 AM CDT us Daniella Mills NP LAB BLOOD ORDERABLES Final Resul t [facility] [address] [facility] Department [place] [address] * Hepatitis C antibody Blood (11/05/2024 10:24 AM CDT) Hep C Ab Nonreactive Nonreactive Comment: Antibodies to HCV not detected. Does NOT exclude the possibility of recent exposure to HCV. Current interpretive data was last revised on 21 Interpretive Data Nonreactive: Antibodies to HCV not detected. Does NOT exclude the possibility of recent exposure to HCV. Equivocal: Equivocal for HCV antibodies. Supplemental molecular testing will be automatically performed to determine infection status in accordance with current CDC screening recommendations. Reactive: Positive for HCV antibodies. This may represent current or past HCV infection. Supplemental molecular testing will be automatically performed to determine current infection status in accordance with current CDC screening recommendations. Interpretive data was last revised on 2019. Blood 11/05/2024 10:2 4 AM CDT 11/05/2024 2:40 PM CDT Daniella Mills NP LAB MICROBIOLOGY - GENERAL ORDER SUDHA Final Result Performing Organization Address [facility] de Phone Number PAOLA [address] [place] [address] * (ABNORMAL) Methylmalonic acid, serum (11/05/2024 10:24 AM CDT) Pathologist [facility] MMA 0.72(H) <=0.40 nmol/mL [facility] Comment: In this sample, the concentration of methylmalonic acid (MMA) was elevated. This finding is likely related to vitamin B12 deficiency. ADDITIONAL INFORMATION This test was developed and its performance characteristics determined by [facility] in a manner consistent with CLIA requirements. This test has not been cleared or approved by the U.S. Food and Drug Administration. Test Performed by: [address] [address] Regular Senior Care Provider: Andrea Sidhu Ph.D.; CLIA# [id number] Testing performed by: [facility], [address] [place] [address]., [address] Blood 11/05/2024 10:2 4 AM CDT 11/05/2024 12:36 PM CDT Daniella Mills NP LAB BLOOD ORDERABLES Final Resul t Performing Organization Address [facility] Co de Phone Number PAOLA [address] [place] [address] [place] [facility] * Hepatitis B core antibody, total Blood (11/05/2024 10:24 AM CDT) Pathologist [facility] Hep B core IgG/IgM Nonreactive Nonreactive Comment:Testing performed by : [facility], [address] [facility], [place]., [address] Blood 11/05/2024 10:2 4 AM CDT 11/05/2024 3:09 PM CDT Daniella Mills NP LAB MICROBIOLOGY - GENERAL ORDER SUDHA Final Result [facility]EREMIA[address] [place] [address] * Vitamin D 25 hydroxy (11/05/2024 10:24 AM CDT) Vitamin D 25-OH 51.0 30.0 - 80.0 ng/mL Blood 11/05/2024 10:2 4 AM CDT 11/05/2024 12:22 PM CDT Daniella Mills NP LAB BLOOD ORDERABLES Final Resul t Performing Organization Address [facility] Co de Phone Number [address] [address] * Hepatitis B surface antibody (immune status) Blood (11/05/2024 10:24 AM CDT) Pathologist [facility] HBsAb (immune status) Reactive Comment: Interpretive Data Nonreactive: This result is consistent with a lack of immunity to Hepatitis B Virus when used in the setting of routine screening. Equivocal: The immune status of the individual should be further assessed, if appropriate, after consideration of clinical status, risk factors, and additional diagnostic information. Reactive: This result is consistent with immunity to Hepatitis B Virus when used in the setting of routine screening. Current interpretive data was last revised on 19. HBsAb (immune status) index 340.0 mIUnits/m L [facility] Blood 11/05/2024 10:2 4 AM CDT 11/05/2024 2:40 PM CDT Daniella Mills NP LAB MICROBIOLOGY - GENERAL ORDER SUDHA Final Result Performing Organization Address [facility] Co de Phone Number [address] [place] [address] * Hepatitis B Surface Antigen Blood (11/05/2024 10:24 AM CDT) Pathologist [facility] HepBsAg Nonreactive Nonreactive Blood 11/05/2024 10:2 4 AM CDT 11/05/2024 2:40 PM CDT Daniella Mills NP LAB MICROBIOLOGY - GENERAL ORDER SUDHA Final Result Performing Organization Address City/[facility]/ZIP Co de Phone Number JEREMIAH[address] [place] [address] * (ABNORMAL) Erythrocyte sedimentation rate (11/05/2024 10:24 AM CDT) [facility] Erythrocyte sedimentation rate 34(H) 1 - 30 mm/hr Comment:Testing performed by : [address] [address] Blood 11/05/2024 10:2 4 AM CDT 11/05/2024 11:06 AM CDT Daniella Mills NP LAB BLOOD ORDERABLES Final Resul t Performing Organization Address [facility] Co de Phone Number [address] [place] [address] * Rheumatoid factor (11/05/2024 10:24 AM CDT) [facility] Rheumatoid factor, quant <10.0 <=15.0 IUnits/mL Blood 11/05/2024 10:2 4 AM CDT 11/05/2024 12:22 PM CDT Daniella Mills NP LAB BLOOD ORDERABLES Final Resul t Performing Organization Address [facility] Co de Phone Number [address] [address] * Hemoglobin A1c (11/05/2024 10:24 AM CDT) [facility] Hgb A1C 5.5 4.0 - 5.6 % Comment:Testing performed by : [address] [address] Estimated Average Glucose 111 mg/dL PAOLA Comment: The ADA recommends reporting an estimated Average Glucose (eAG) with all Hemoglobin A1c results using the equation derived from a study of 507 normal and diabetic adults. Minority populations were underrepresented and children were not included. (Diabetes Care 31:5429-0210, 2008). The eAG is not equivalent to a fasting glucose. Testing performed by: [address] [address] Blood 11/05/2024 10:2 4 AM CDT 11/05/2024 11:06 AM CDT Daniella Mills NP LAB BLOOD ORDERABLES Final Resul t Performing Organization Address [facility] Co de Phone Number [address] [place] [address] * (ABNORMAL) Vitamin B12 (11/05/2024 10:24 AM CDT) Vitamin B12 226(L) 230 - 1,250 pg/mL Comment:Testing performed by : [address] [address] Blood 11/05/2024 10:2 4 AM CDT 11/05/2024 12:37 PM CDT Daniella Mills NP LAB BLOOD ORDERABLES Final Resul t [address] [place] [address] * (ABNORMAL) Lipid panel (11/05/2024 10:24 AM CDT) Cholesterol 227(H) 30 - 199 mg/dL Comment: Interpretive Data Ages < or = 19 years Acceptable: <170 mg/dL Borderline high: 170-199 mg/dL High: >or= 200 mg/dL Ages > or = 20 years Desirable: <200 mg/dL Borderline high: 200-239 mg/dL High: >or= 240 mg/dL Literature References: 1. Expert Panel on Integrated Guidelines for Cardiovascular Health and Risk Reduction in Children and Adolescents. Pediatrics 2011;128:S213 2. NCEP Expert Panel. Circulation 2004;110:227 Current Interpretive Data was last revised on 2017. Testing performed by: [address] [address] Triglycerides 43 <=149 mg/dL PAOAL Comment: Interpretive Data Ages < or = 9 years Acceptable: <75 mg/dL Borderline high: 75-99 mg/dL High: >or= 100 mg/dL Ages 10 to 20 years Acceptable: <90 mg/dL Borderline high: 90-129 mg/dL High: >or= 130 mg/dL Ages > or = 20 years Desirable: <150 mg/dL Borderline high: 150-199 mg/dL High: 200-499 mg/dL Very high: >or= 499 mg/dL Literature References: 1. Expert Panel on Integrated Guidelines for Cardiovascular Health and Risk Reduction in Children and Adolescents. Pediatrics 2011;128:S213 2. NCEP Expert Panel. Circulation 2004;110:227 Current Interpretive Data was last revised on 2017. Testing performed by: [address] [address] HDL 86 >=40 mg/dL PAOLA Comment: Interpretive Data Ages < or = 19 years Acceptable: >45 mg/dL Borderline low: 40-45 mg/dL Low: <40 mg/dL Ages > or = 20 years Desirable: >or= 60 mg/dL Low: <40 mg/dL Literature References: 1. Expert Panel on Integrated Guidelines for Cardiovascular Health and Risk Reduction in Children and Adolescents. Pediatrics 2011;128:S213 2. NCEP Expert Panel. Circulation 2004;110:227 Current Interpretive Data was last revised on 2017. Testing performed by: [address] [address] LDL, calculated 134(H) <=129 mg/dL PAOLA Comment: Interpretive Data Ages < or = 19 years Acceptable: <110 mg/dL Borderline high: 110-129 mg/dL High: >or= 130 mg/dL Ages > or = 20 years Optimal: <100 mg/dL Near optimal: 100-129 mg/dL Borderline high: 130-159 mg/dL High: >160 mg/dL Calculated using the Blaise LDL-C estimating equation. This equation was implemented on 2023. Prior to this date LDL-C was estimated using the Friedewald equation. Literature References: 1. Expert Panel on Integrated Guidelines for Cardiovascular Health and Risk Reduction in Children and Adolescents. Pediatrics 2011;128:S213 2. NCEP Expert Panel. Circulation 2004;110:227 3. Blaise M et al. MARTHA Cardiol. 2019August 27;5(5):540-548. doi: 10.1001/[email or web address].2020.0013 Current Interpretive Data was last revised on 2023. Testing performed by: [address] [address] Non-HDL Cholesterol 141 mg/dL PAOLA ELY Comment: Interpretive Data Ages < or = 19 years Acceptable: <120 mg/dL Borderline high: 120-144 mg/dL High: >145 mg/dL Ages > or = 20 years When triglycerides are >200 mg/dL, Non-HDL cholesterol is a secondary target of therapy with treatment goals that are 30 mg/dL greater than the LDL cholesterol target. Literature References: 1. Expert Panel on Integrated Guidelines for Cardiovascular Health and Risk Reduction in Children and Adolescents. Pediatrics 2011;128:S213 2. NCEP Expert Panel. Circulation 2004;110:227 Current Interpretive Data was last revised on 2017. Testing performed by: [address] [address] Chol/HDL ratio 3 PAOLA Comment:Testing performed by : [address] [address] Blood 11/05/2024 10:2 4 AM CDT 11/05/2024 11:36 AM CDT Narrative PAOLA ELY - 11/05/2024 12:05 PM CDT Has the patient been fasting for 8 hours or more?->Yes us Daniella Mills NP LAB BLOOD ORDERABLES Final Resul t PAOLA ELY [address] [facility] [place] [address] * Comprehensive metabolic panel (11/05/2024 10:24 AM CDT) Sodium 142 135 - 145 mmol/L Comment:Testing performed by : [address] [address] Potassium, pl 4.6 3.3 - 4.9 mmol/L [facility] Comment:Testing performed by : [address] [address] Chloride 103 97 - 110 mmol/L [facility] Comment:Testing performed by : [address], [place]., [address] CO2 28 22 - 32 mmol/L [facility] Comment:Testing performed by : [address] [address] Anion gap 11 2 - 15 mmol/L [facility] Comment:Testing performed by : [address] [address] BUN 19 6 - 25 mg/dL [facility] Comment:Testing performed by : [address], [place]., [address] Creatinine 0.80 0.60 - 1.10 mg/dL [facility] Comment:Testing performed by : [address] [address] Glucose 98 70 - 199 mg/dL [facility] Comment: Interpretive Data Fasting glucose >/= 126 mg/dl is diagnostic for diabetes. Fasting is defined as no caloric intake for at least 8 hours. Fasting glucose between 100 mg/dl to 125 mg/dl is diagnostic of prediabetes. In a patient with classic symptoms of hyperglycemia or hyperglycemic crisis, a random glucose >/= 200 mg/dl is diagnostic for diabetes. In the absence of unequivocal hyperglycemia, results should be confirmed by repeat testing. The classification and Diagnosis of Diabetes Diabetes Care 202; 46: S19-S40. Current interpretive data was last revised 2022. Testing performed by: [address], [place]., [address] Calcium 9.8 8.5 - 10.3 mg/dL [facility] Comment:Testing performed by : [address] [address] Bilirubin, total 0.4 0.1 - 1.2 mg/dL PAOLA Comment:Testing performed by : [address] [address] Protein, pl 7.6 6.5 - 8.5 g/dL PAOLA Comment:Testing performed by : [address], [place]., [address] Albumin 4.3 3.5 - 5.0 g/dL PAOLA Comment:Testing performed by : [address] [address] Alk phos 41 40 - 130 Units/L PAOLA Comment:Testing performed by : [address] [address] ALT 17 7 - 45 Units/L PAOLA Comment:Testing performed by : [address] [address] AST 24 10 - 45 Units/L PAOLA Comment:Testing performed by : [address] [address] Blood 11/05/2024 10:2 4 AM CDT 11/05/2024 11:36 AM CDT Narrative [facility] - 11/05/2024 12:05 PM CDT Has the patient fasted?->Yes us Daniella Mills NP LAB BLOOD ORDERABLES Final Resul t [place] [id number] [facility] Department of Laboratories [place], [place] [id number] * Colonoscopy (07/22/2023 10:12 AM CDT) Anatomical Region Laterality Modality Other Narrative Procedure Note Darling Parham MD - 07/22/2023 10:12 AM CDT [facility] Patient Name: Lizzeth Aaron Procedure Date: 07/22/2023 10:12 AM Date of : 1960 Admit Type: Outpatient Age: 63 Gender: Female Attending MD: Darling Parham M.D. Room: [facility] ENDOSCOPY ROOM 1 Note Status: Finalized Patient Profile: This is a 63 year old female. No family history of colon cancer. History of large adenoma polypremoved by piecemeal technique last year. Pathology showed serrated adenoma. Follow-up surveillance Procedure: Colonoscopy Indications: High risk colon cancer surveillance: Personalhistory of colonic polyps, Last colonoscopy: August 2022 Referring MD: Maxi Stratton PA-C Providers: Darling Parham M.D. Impression: - One 16 mm remnant polyp in the cecum, removed piecemeal using a cold snare. Resected andretrieved. - Four 2 to 4 mm polyps at the recto-sigmoid colonand in the descending colon, removed with a jumbo cold forceps. Resected and retrieved. - Internal hemorrhoids. Recommendation: - Await pathology results. - Repeat colonoscopy in 2 years for surveillance. - Continue present medications. Medicines: Monitored Anesthesia Care Complications: No immediate complications. Estimated Blood Loss: Estimated blood loss: none. Procedure: Pre-Anesthesia Assessment: - Prior to the procedure, a History and Physicalwas performed, and patient medications and allergieswere reviewed. The patient's tolerance of previous anesthesia was also reviewed. The risks andbenefits of the procedure and the sedation options and risks were discussed with the patient. All questions were answered, and informed consent was obtained. Prior Anticoagulants: The patient has taken noanticoagulant or antiplatelet agents. ASA Grade Assessment: Per anesthesia note and evaluation. After reviewing the risks and benefits, the patient was deemed in satisfactory condition to undergo the procedure. The benefits, risks and alternatives of theprocedure and sedation were discussed and informed consentwas obtained. All questions were answered. Please referto the signed informed consent document in the medical record. The bowel preparation used was Miralax and bisacodyl tablets via split dose instruction. The scope was passed under direct vision. The Pediatric Colonoscope PCF-H190L [id number] was introducedthrough the anus and advanced to the the cecum, identifiedby appendiceal orifice and ileocecal valve. Thequality of the bowel preparation was good. Bowel prep was administered using a split dose. Findings: The perianal and digital rectal examinations were normal. The appendiceal orifice appeared normal. A 16 mm remnant polyp was found in the cecum. The polyp was flat. The polyp was removed with a piecemeal technique using a cold snare. Resection and retrieval were complete. The sigmoid colon, transverse colon and ascending colon appearednormal. Four flat polyps were found in the recto-sigmoid colon and descending colon. The polyps were 2 to 4 mm in size. These polyps were removedwith a jumbo cold forceps. Resection and retrieval were complete. Internal hemorrhoids were found during retroflexion. The hemorrhoids were small. Electronically signed by Darling Parham M.D. Darling Parham M.D. 07/22/2023 12:14:17 PM Number of Addenda: 0 Note Initiated On: 07/22/2023 10:12 AM Procedure Code(s): --- Professional --- 93934, Colonoscopy, flexible; with removal of tumor(s), polyp(s), or other lesion(s) by snare technique 12670, 59, Colonoscopy, flexible; with biopsy, single or multiple Diagnosis Code(s): --- Professional --- Z86.010, Personal history of colonic polyps K64.8, Other hemorrhoids D12.0, Benign neoplasm of cecum D12.7, Benign neoplasm of rectosigmoid junction D12.4, Benign neoplasm of descending colon CPT copyright 2020 [employer]. All rights reserved. The codes documented in this report are preliminary and upon cement production plant operator reviewmay be revised to meet current compliance requirements. Recognized by the [employer] for promoting quality in endoscopy Darling Parham MD ENDOSCOPY PROCEDURES Final Result * Pap Only (Cytology Component) (12/10/2022) Thin prep 12/10/2022 Historical Provider LAB CYTOLOGY ORDERABLES F inal Result from Last 3 Months or Most Recently Relevant to Health Maintenance Insurance [facility] [address] [place] [address] [facility] Advance Directives For more information, please contact: [phone] * Full Code (Latest Code Status on File) Date Activated Date Inactivated Comments 07/22/2023 10:12 AM 07/22/2023 4:53 PM * Full Code Date Activated Date Inactivated Comments 09/12/2022 11:50 AM 09/12/2022 7:07 PM * Full Code Date Activated Date Inactivated Comments 09/12/2022 11:50 AM 09/12/2022 11:50 AM Care Teams Damage Adjuster Relationship Specialty Start Date End Date Daniella Mills NP [address] [place] [id number] PCP - General Family Medicine 09/02/24
--- OUTSIDE RECORDS SUMMARY | 2024-12-09 10:32 | XMS_ITS | Encounter Summary ---
Author Organization [facility] Healthcare Address [address] [place] [address] Care Team Providers Care Remediation Technician Name Role Phone Daniella Mills HYDROTHERAPIST Primary Care Provider [phone] Encounter Details Date Type Department Care Team (Latest Contact Info) Description 11/10/2024 Results Follow-Up [facility] Primary Care at [place] [id number] [phone] Daniella Mills HYDROTHERAPIST [facility] [address] [address] Rheumatoid factor, Erythrocyte sedimentation rate, ENRIQUETA ab ql w/rflx to ENRIQUETA qn, Additional followed-up results: 15 Social History Tobacco Use Types Packs/Day Years Used Date Smoking Tobacco: Never Smokeless Tobacco: Never AUDIT-C Answer Date Recorded Q1: How often [...] on file 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
--- OUTSIDE RECORDS SUMMARY | 2024-12-09 10:32 | XMS_ITS | Clinical Summary ---
Author Organization [facility] Address [address] [place] [id number] Care Team Providers Care Vp Cardiovascular Name Role Phone Sherry Berg PA-C Primary Care Provider [phone] Keke Wahl BLOWING WEASAND Unavailable Social History Tobacco Use Types Packs/Day Years Used Date Smoking Tobacco: Never Assessed Comments Unknown Sex and Gender Information Value Date Recorded Sex Assigned at Not on file Legal Sex Female 5:19 PM CDT Gender Identity Not on file Sexual Orientation Not on file Plan of Treatment Health Maintenance Due Date Last Done Comments Cervical Cancer Screening Pa p Smear (Age 30 to 64) Every 3 Years 1960 Colorectal Cancer Screening Colonoscopy (10 Years) 1960 Annual Physical 01/03/1964 Hepatitis C 1979 DTaP, Tdap and Td Vaccines ( 1 - Tdap) 01/03/1980 Cervical Cancer Screening Pa p with HPV Testing (Age 30 to 64) Every 5 Years 1991 Cervical Cancer Screening wi th HPV 1991 Mammogram Screening 2001 Pneumococcal Vaccine: 50+ Years (1 of 1 - PCV) 2011 Zoster Vaccines (1 of 2) 2011 COVID-19 Vaccine ( - 2023-2 5 season) 2023 05/06/2020, 04/15/2020 RSV Immunization or 60+ Years (1 - 1-dose 75+ series) 01/03/2036 Meningococcal B Vaccine Aged Out No l onger eligible based on patient's age to complete this topic Meningococcal Vaccine Aged Out No ana darvin eligible based on patient's age to complete this topic RSV Immunizations Under 20 Months Aged Out No longer eligible b ased on patient's age to complete this topic Insurance Care Teams Vp Cardiovascular Relationship Specialty Start Date End Date Sherry Berg PA-C [address] [address] PCP - General PHYSICIAN MANAGER EXPORT 01/18/21 Keke Wahl NP 3 [facility] [address] [place] [address] Nurse Practitioner Women's Health 01/18/21
--- OUTSIDE RECORDS SUMMARY | 2024-12-09 10:33 | XMS_ITS | Continuity of Care Document ---
Author Name [facility] Organization [facility] Care Team Providers Care Academic Interventionist Name Role Phone [facility] Unavailable Unavailable Problems Combined list of problems from 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 It does not include entries that were removed or entered in error. Problem Status Onset Date Problem Type Date of Resolution Comments Source Test result to patient by telephone Active 07/28/19 25 Diagnosis -37 [facility] Left knee pain Active 06/25/19 25 Diagnosis -37 [facility] Encounter for general adult medical examination without abnormal findings Active 11/26/19 19 Condition DoD Anxiety disorder, unspecified Active 11/26/19 19 Condition DoD Insomnia, unspecified Active 11/26/19 19 Condition DoD Encounter for issue of repeat prescription Active 11/26/19 19 Condition DoD Encounter for screening mammogram for malignant neoplasm of breast Active 11/26/19 19 Condition DoD Disorder of thyroid hormone Active Condition [facility] Mixed incontinence Active Condition -37 [facility] Osteopenia following menopause Active Condition -37 [facility] Vitamin D deficiency, unspecified Active Condition DoD Low back pain Active Condition DoD Encounter for other administrative examinations Active Condition DoD Pain in left shoulder Active Condition DoD Localized swelling, mass and lump, unspecified Active Condition DoD Other skin changes Active Condition DoD sudden redness of the skin (flushing) Active Condition DoD URGE INCONTINENCE OF URINE Active Condition DoD anxiety Active Condition DoD SPRAIN RIBS Inactive Condition DoD Aftercare Active Condition DoD visit for: screening malignant neoplasm colon Inactive Condition DoD Administrative Evaluation Services Inactive Condition DoD visit for: laboratory Inactive Condition DoD urinary loss of control Active Condition DoD SHOULDER STRAIN LEFT Inactive Condition DoD Overweight Active Condition DoD PLANTAR FASCIITIS Active Condition DoD visit for: routine adult H&P Inactive Condition DoD CERVICALGIA Active Condition DoD PERIMENOPAUSE Inactive Condition DoD ALOPECIA AREATA Inactive Condition DoD ALLERGIC RHINITIS Active Condition DoD VERTIGO Inactive Condition DoD SCAR Inactive Condition DoD CONSTIPATION Inactive Condition DoD ESOPHAGEAL REFLUX Active Condition DoD NORMAL ROUTINE HISTORY AND PHYSICAL Inactive Condition DoD LUMBAGO Active Condition DoD BRONCHITIS Inactive Condition DoD joint pain, localized in the knee Active Condition L knee DoD visit for: issue repeat prescription Inactive Condition DoD THYROID DISORDERS Active Condition di scussed radiology comment of considering FNA of thyroid nodule; pt states never referred and never informed of need for bx. Contacted [facility], spoke with TEENA High; recommends referring to endocrinology without repeating test, but pt to take copies of films and labs with her to appt and they can decide if test needs repeated or not DoD DYSMENORRHEA Active Condition DoD visit for: screening exam for malignant neoplasm cervix Inactive Condition DoD OPEN WOUND FINGERS LEFT RING FINGER Inactive Condition DoD CERVICAL POLYPS Active Condition DoD AMENORRHEA Active Condition keep mens trual calendar, parameters given; notify clinic if exceed parameters DoD CERVICAL DYSPLASIA: MILD Active Condition repeat pap 1 yr if pap/HPV both neg DoD Thyroid Function Tests Nonspecific Abnormal Findings Active Condition Per Dr Marcela grijalva, order thyroid uptake scan per recommendations from thyroid us report.SHYAM AARON Age:46 [id number] OUTPAT PRE-ACTIVE ORDERS 1 RAD NUC MED THYROID UPT/SCAN (MULTIPLE) ~NUCLEAR MEDICINE~AMB DoD Colposcopy Inactive Condition DoD visit for: screening exam malignant neoplasm breast Inactive Condition DoD ROUTINE GYNECOLOGICAL EXAM WITH CERVICAL PAP SMEAR Inactive Condition DoD visit for: administrative purpose Inactive Condition Patient informe d of lab results and the need to have additional lab done and an US of the thyroid. Radiology # given and patient to call and schedule. Patient verbalized understanding DoD ANOMALIES OF SKIN Active Condition Wi ll refer to derm for further eval and treatment. DoD heartburn Active Condition Will danielito nue current dosage of Aciphex. DoD DEPRESSION Active Condition DoD visit for: screening exam Inactive Condition DoD BACKACHE Inactive Condition Will refer to PT for further eval and treatment. DoD HYPOTHYROIDISM Active Condition DoD visit for: issue repeat prescription for medication Inactive Condition DoD Laboratory Studies Active Condition DoD insomnia Active Condition DoD ESOPHAGITIS CHRONIC REFLUX Active Condition DoD Medications Combined list of outpatient medications from 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Medications provided include 1) outpatient medications from the last 15 months, and 2) patient-reported medications. Medication Details Route Status Patient Instructions Prescription Expires Prescription Number Last Dispense Date Ordering Provider Order Date Order Qty Source buPROPion 300 mg/24 hours (XL) oral tablet, extended release 1 tab(s), Oral, Daily, # 90 tab(s), 3 total refill(s ), Acute, Pharmacy : [facility] Oral (given by mouth) Complet ed 11/28/2023 4 2023 90.0 [facility] buPROPion XL 300 mg/24 hour tablet See Instruct ions, # 90 EA, 1 total refill(s ), Acute Discont inued 11/27/2022 3 2022 90.0 Ambulat ory Pharmac y buPROPion XL 300 mg/24 hour tablet See Instruct ions, # 30 EA, 0 total refill(s ), Soft Stop Ordered 5 2024 30.0 Ambulat ory Pharmac y Caltrate 600 + D oral tablet 1 tab(s), Oral, BID, # 180 tab(s), 3 total refill(s ), Maintena mse, Pharmacy : [facility] Oral (given by mouth) Ordered 2022 180.0 0055C-[address] [place] [address] [place] diclofenac 1% topical gel 4.5 in, Topical, QID, apply to left knee, # 100 g, 0 total refill(s ), Maintena mse, Pharmacy : [facility] Topica l (on the skin) Ordered 5 2024 100.0 0055C-[address] [place] [address] [facility] levothyroxi ne (Synthroid) 125 mcg tablet See Instruct ions, # 30 EA, 0 total refill(s ), Soft Stop Ordered 5 2024 30.0 Ambulat ory Pharmac y lidocaine 5% topical patch 1 patch(es ), Topical, Daily, Leave on for up to 12 hours within a 24 hour period (12 hours on, 12 hours off), # 30 patch(es ), 3 total refill(s ), Maintena mse, Pharmacy : [facility] Topica l (on the skin) Ordered 4 2023 30.0 0055C-[address] [place] [address] [place] naproxen 500 mg tablet 500 mg, TAKE ONE TABLET BY MOUTH TWICE A DAY WITH FOOD NEEDED FOR PAIN, # 60 EA, 1 total refill(s ), Acute Complet ed 07/15/2023 3 2023 60.0 Ambulat ory Pharmac y Robaxin 500 mg oral tablet 2 tab(s), Oral, QID, PRN muscle spasm, # 40 tab(s), 1 total refill(s ), Acute, Pharmacy : [facility] Oral (given by mouth) Complet ed 04/30/2024 4 2024 40.0 0055C-3 [facility] Robaxin 500 mg oral tablet 2 tab(s), Oral, QID, # 112 tab(s), 0 total refill(s ), Maintena nce Oral (given by mouth) Discont inued 11/27/20222022 112.0 0055C-3 [facility] [place] Robaxin 500 mg oral tablet 2 tab(s), Oral, QID, PRN muscle spasm, # 40 tab(s), 0 total refill(s ), Acute, Pharmacy : [facility] Oral (given by mouth) Discont inued 06/25/2023 3 2023 40.0 0055C-3 [facility] [place] Robaxin 500 mg oral tablet 2 tab(s), Oral, QID, PRN muscle spasm, # 40 tab(s), 1 total refill(s ), Acute, Pharmacy : [facility] Oral (given by mouth) Discont inued 11/29/2023 4 2023 40.0 0055C-3 [facility] [place] Synthroid 125 mcg oral tablet 1 tab(s), Oral, every morning, # 90 tab(s), 3 total refill(s ), Maintena nce, Pharmacy : [facility] Oral (given by mouth) Discont inued 11/24/2024 5 2024 90.0 0055C-3 [facility] [place] Synthroid 125 mcg oral tablet 1 tab(s), Oral, every morning, # 90 tab(s), 3 total refill(s ), Maintena nce, Pharmacy : [facility] Oral (given by mouth) Discont inued 11/29/2023 4 2023 90.0 0055C-3 [facility] [place] Synthroid 125 mcg oral tablet 1 tab(s), Oral, Daily, TAKE ONE TABLET BY MOUTH EVERY MORNING, # 30 tab(s), 0 total refill(s ), [facility], Pharmacy : [facility] Oral (given by mouth) Discont inued 11/27/2022 3 2022 30.0 0055C[facility]3 [facility] syringe w/needle 2.5-3ml 25g 1in USE 1 SYRINGE TO DRAW UP MED. USE 1 SYRINGE TO SELF-INJ ECT., # 4 EA, 4 total refill(s ), Acute Complet ed 01/04/2023 2 2022 4.0 Ambulat ory Pharmac y traZODone 50 mg oral tablet 90 tab(s), 0 Refill(s ), 0 total refill(s ), Soft Stop Discont inued 11/29/20232023 0055C-3 [facility] traZODone 50 mg oral tablet 1 tab(s), Oral, every day at bedtime, Take 1 tab as needed, # 90 tab(s), 0 total refill(s ), Hard Stop, 07/13/24 10:45:10 AM CDT, [facility]acy : [facility] Oral (given by mouth) Complet ed 07/13/2024 4 2024 90.0 0055C-3 [facility] traZODone 50 mg oral tablet 1 tab(s), Oral, every day at bedtime, # 90 tab(s), 3 total refill(s ), Acute, 11/28/23 12:00:00 AM CDT, Pharmacy : [facility] Oral (given by mouth) Complet ed 11/28/2023 4 2023 90.0 0055C-3 [facility] traZODone 50 mg oral tablet 1 tab(s), Oral, every day at bedtime, Take 1 tab as needed, # 90 tab(s), 0 total refill(s ), [facility], Pharmacy [facility] Oral (given by mouth) Discont inued 11/24/2024 5 2024 90.0 0055C-3 [facility] traZODone 50 mg tablet See Instruct ions, # 30 EA, 0 total refill(s ), Soft Stop Ordered 5 2024 30.0 Ambulat ory Pharmac y traZODone 50 mg tablet See dose instruct ions in comments , # 90 EA, 1 total refill(s ), Acute Discont inued 11/27/2022 3 2022 90.0 Ambulat ory Pharmac y Vitamin B Complex Vitamin B Complex, 0 total refill(s ), Maintena nce Ordered 2022 0055C-3 [facility] Wellbutrin XL 300 mg/24 hours oral tablet, extended release 1 tab(s), Oral, Daily, # 90 tab(s), 3 total refill(s ), Maintena nce, Pharm[facility] : [facility] Oral (given by mouth) Discont inued 11/24/2024 5 2024 90.0 0055C-3 [facility] Xanax 0.5 mg oral tablet 1 tab(s), Oral, BID, 0 total refill(s ), Maintena nce Oral (given by mouth) Ordered 2022 0055C[facility]3 [facility] Allergies, Adverse Reactions, Alerts Combined list of allergies from 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 It does not include entries that were removed or entered in error. Substance Category Reaction Severity Reaction type Status Date Reported Comments Source [facility] Drug allergy (disorder) active 10/15/2007 [facility] RODRIGUEZ ([facility]) Immunizations Combined list of available immunizations from the 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 Immunization Series Date Given Administered By Site Reaction Lot Number CVX Code Drug Hook Up Status Comments Source COVID-19, mRNA, LNP-S, PF, 30 mcg/0.3 mL dose, samuel-sucrose 2021 FRIED, [place] (PFR) Not Given COVID-19, mRNA, LNP-S, PF, 30 mcg/0.3 mL dose, samuel-sucr ose [facility] tetanus, diphtheria, acellular pertu is 2006 115 complet ed tetanus, diphtheri a, acellular pertussis 07/08/06 Given Ambulat ory Pharmac y tetanus toxoid, reduced diphtheria toxoid, and acellular pertu is vaccine, adsorbed 1 2006 Unknown, Provider 115 Transcribed (TRS) complet ed tetanus toxoid, reduced diphtheri a toxoid, and acellular pertussis vaccine, adsorbed DoD Results Combined list of recent chemistry, hematology and other laboratory results from Department of Defense and Veterans Affairs, ranging from 15 months to all on record, depending upon the facility. Order Name Results Value Reference Range Date Interpretation Specimen Comments Source Hematolo gy RBC 4.0 x10^6/mc L 3.6 - 5.0106 11/28 N [facility] Hematolo gy RDW 13.3 % 11.0 - 14.9 11/28 N [facility] Hematolo gy WBC 5.0 x10^3/mc L 4.0 - 11.0103 11/28 N [facility] Hematolo gy MCH 32 pg 28 - 33 11/28 N [facility] Hematolo gy MPV 10.5 fL 7.4 - 10.4 11/28 H [facility] Hematolo gy Platelets 216.0 x10^3/mc L 150.0 - 450.0103 11/28 N [facility] Hematolo gy MCHC 33.1 g/dL 33.0 - 36.5 11/28 N [facility] Hematolo gy MCV 98 fL 80 - 97 11/28 H [facility] Hematolo gy Hemoglobin 12.8 g/dL 11.0 - 15.0 11/28 N [facility] Hematolo gy Hematocrit 39 % 34 - 46 11/28 N 5A [facility] Chemistr y Creatinine Level 0.90 mg/dL 0.57 - 1.11 11/28 N 5A [facility] Chemistr y Glucose Lvl 90 mg/dL 74 - 99 11/28 N - [facility] Chemistr y Protein Total 7.6 g/dL 6.4 - 8.3 11/28 N [facility] Chemistr y Sodium 140 mmol/L 136 - 145 11/28 N [facility] Chemistr y Potassium Lvl 4.4 mmol/L 3.5 - 5.1 11/28 N [facility] Chemistr y CO2 26 mmol/L 22 - 29 11/28 N [facility] Chemistr y Chloride 105 mmol/L 98 - 107 11/28 N [facility] Chemistr y Calcium 9.9 mg/dL 8.4 - 10.2 11/28 N [facility] Chemistr y BUN/Creat Ratio 24 mg/dL 12 - 20 11/28 H - [facility] Chemistr y BUN 22 mg/dL 7 - 20 11/28 H [facility] Chemistr y ALT 16 U/L 5 - 55 11/28 N [facility] Chemistr y Alk Phos 37 U/L 40 - 150 11/28 L [facility] Chemistr y Albumin 4.20 g/dL 3.50 - 5.20 11/28 N [facility] Chemistr y Bilirubin Total 0.6 mg/dL 0.2 - 1.2 11/28 N [facility] Chemistr y AST 23 U/L 5 - 34 11/28 N [facility] Chemistr y AGAP 9.00 0.00 - 15.00 11/28 N [facility] Chemistr y eAvg Glucose 100 mg/dL 11/28 [facility] Chemistr y Hemoglobin A1c 5.1 % 4.0 - 5.6 11/28 N Interpretiv e Data: Normal: 4.0 - 5.6% Increased Risk: 5.7 - 6.4% Diabetic Range: 6.5% For patients without diabetes, the normal range for the hemoglobin A1c test is between 4% and 5.6%. Hemoglobin A1c levels between 5.7% and 6.4% indicate increased risk of diabetes, and levels of 6.5% or higher indicate diabetes. Because studies have repeatedly shown that out-of-cont rol diabetes results in complicatio ns from the disease, the goal for people with diabetes is a hemoglobin A1c less than 7%. The higher the hemoglobin A1c, the higher the risks of developing complicatio ns related to diabetes. If confirmatio n is needed, consider recalling the patient and ordering Hemoglobin Electrophor esis. [facility] Chemistr y Triglyceri lizette 38 mg/dL 7 - 149 11/28 N Interpretiv e Data: AGES 0-9: Desirable: < 75 mg/dL Borderline High: 75-99 mg/dL High: >/= 100 mg/dL AGES 10-19: Desirable: < 90 mg/dL Borderline High: 90-129 mg/dL High: >/= 130 mg/dL ADULTS: Desirable: < 150 mg/dL Borderline High: 150-199 mg/dL High: >/= 240 mg/dL Very High: >/= 500 mg/dL [facility] Chemistr y HDL Cholestero l 81 mg/dL 40 - 59 11/28 H Interpretiv e Data: HDL (HIGH DENSITY LIPOPROTEIN ): ADULTS: Low: < 40 mg/dL High: >/= 60 mg/dL AGES 0 -19: Low: < 40 mg/dL Borderline Low: 40 - 45 mg/dL Acceptable: > 45 mg/dL [facility] Chemistr y Cholestero l Total 207 mg/dL 11/28 H Interpretiv e Data: According to the [place] [employer] : AGES 0-19: Desirable: < 170 mg/dL Borderline High: 170-199 mg/dL High Blood Cholesterol : >/= 200 mg/dL ADULTS: Desirable < 200 mg/dL Borderline High: 200-239 mg/dL High Blood Cholesterol : >/= 240 mg/dL [facility] Chemistr y LDL/HDL 2 11/28 [facility] Chemistr y LDL 122 mg/dL 100 - 130 11/28 N Interpretiv e Data: AGES 0-19: Desirable: < 110 mg/dL Borderline High: 110-129 mg/dL High: >/= 130 mg/dL ADULTS: Desirable: <100 mg/dL Near/above optimal: 100-130 mg/dL Borderline High: 131-159 mg/dL High: 160-189 mg/dL Very High: 190 mg/dL [facility] Chemistr y Chol/HDL 3 mg/dL 11/28 [facility] Chemistr y Folate Lvl >20.0 ng/mL 11/28 N Interpretiv e Data: 28 MAR 2017 Notice: Samples for thes asssay should not be taken from patients receiving therapy with high biotin doses (i.e. > 5 mg/day) until 8 hours following last biotin administrat ion. Please note that these values were obtained in the [place] during National Health and Nutrition Examination Survey (NHANES), 1999 -2004. it should be taken into considerati on that differences in the expected values may exist with respect to population and dietary status. New Reference Range effective 17 0117A-AF- ASU-59th [facility] Chemistr y Vitamin B12 267 pg/mL 232 - 1245 11/28 N Result Comment: Test confirmed by repeat analysis. Interpretiv e Data: 01 MAR 2017 Notice: Samples for this assay should not be taken from patients receiving therapy with high biotin doses (i.e. > 5 mg/day) until 8 hours following last biotin administrat ion. 0117A-AF- ASU-[facility]th [facility] Chem[facility] y Vitamin D 25 OH 61.0 ng/mL 30.0 - 100.0 11/28 N Interpretiv e Data: Classificat ion of Vitamin D Status: Deficient: <20 ng/mL Insufficien t: 20-29 ng/mL Sufficient: 30-100 ng/mL Possible Toxicity: >100 ng/mL This assay is for the quantitativ e determinati on of total 25 (OH) vitamin D. It is intended as an aid in the determinati on of vitamin D sufficiency . Results should always be interpreted in conjunction with the patient's medical history, clinical presentatio n, and other findings. Testing performed by [place] [facility]. [employer] [facility] Chemistr y TSH 1.090 mIU/L 0.270 - 4.200 11/28 N Interpretiv e Data: Recommend: TPO/Thyrope roxidase Antibody when TSH result is > 4.2 uIU/mL [employer] [facility] Hematolo gy Neutro Absolute 3.0 x10^3/mc L 2.0 - 7.0103 11/28 N [facility] Hematolo gy Neutrophil % Auto 58.6 % 46.0 - 77.0 11/28 N [facility] Hematolo gy [place] Absolute 0.4 x10^3/mc L 0.2 - 0.8103 11/28 N [facility] Hematolo gy Monocyte % Auto 7 % 1 - 12 11/28 N [facility] Hematolo gy Lymphocyte % Auto 33.1 % 20.0 - 40.0 11/28 N [facility] Hematolo gy Lymph Absolute 1.7 x10^3/mc L 1.2 - 4.0103 11/28 N [facility] Hematolo gy Eos Absolute 0.0 x10^3/mc L 0.0 - 0.7103 11/28 N 005 [facility] Hematolo gy Eosinophil % Auto 1 % 0 - 5 11/28 N [facility] Hematolo gy Basophil % Auto 0.2 % 0.0 - 2.5 11/28 N [facility] Hematolo gy Baso Absolute 0.0 x10^3/mc L 0.0 - 0.1103 11/28 N 0055A [facility] Chemistr y eGFR CKD EPI 72 mL/min/1 .73_m2 11/28 Interpretiv e Data: Estimated Glomerular Filtration Rate (eGFR) calculated using the 2020 Chronic Kidney Disease-Epi demiology (CKD-EPI) Collaborati on creatinine equation; units of measure are mL/min/1.73 m2. Results are only valid for adults (>=18 years) whose serum creatinine is in steady state. eGFR calculation s are not valid for patients with acute kidney injury and for patients on dialysis. Creatinine- based estimates of kidney function may also be inaccurate in patients with reduced creatinine generation due to decreased muscle mass (e.g., malnutritio n, severe hypoalbumin emia, sarcopenia, chronic neuromuscul ar disease, amputations , severe heart failure or liver disease) and in patients with increased creatinine generation due to increased muscle mass (e.g., muscle builders, anabolic steroids) or increased dietary intake. CKD is diagnosed based on abnormaliti es of kidney structure or function, present for >3 months, with implication s for health and disease. CKD is classified and staged based on cause, eGFR and albuminuria (quantified as urine albumin to creatinine ratio). An eGFR >60 mL/min/1.73 m2 in the absence of increased urine albumin excretion or structural abnormaliti es does not CKD. eGFR provides only an estimate of measured GFR within +/- 30% for most patients. As mentioned, nutritional status and muscle mass, among many factors, may lead to inaccuracy in the estimate. Consider ordering the creatinine- cystatin C panel if better accuracy is needed for clinical decision-nancy krishnan. eGFR (mL/min/1.7 3 m2) CKD stage Interpretat ion Normal 60-89 Mild decrease 45-59 Mild to moderate decrease 30-44 Moderate to severe decrease 15-29 Severe decrease <15 Kidney failure 0055A-375 [facility] AP Specimen s HPV Genotype 16 NEG HPV16 12/10 Interpretiv e Data: HPV GENOTYPE 16 Negative: NEGATIVE for HPV DNA genotype 16 DNA. HPV GENOTYPE 16 Positive: POSITIVE for HPV genotype 16 DNA. Limitations : A negative result does NOT preclude the presence of HPV infection because results depend on adequate specimen collection, absence of inhibitors and sufficient DNA to be detected. Correlation with cytologic findings is recommended as applicable. Questions about process or methodology contact Molecular Department at [phone]. Unknown Organizat ion AP Specimen s HPV Typing High Risk Negative 20 (12/10/22 3:14 PM) 12/10 N Interpretiv e Data: HPV Typing High Risk Negative: NEGATIVE for concurrentl y detecting the rest of the 12 high risk types HPV DNA (31,33,35,3 9,45,51,52, 56,58,59,66 and 68) without differentia tion. HPV Typing High Risk Positive: POSITIVE for concurrentl y detecting the rest of the 12 high risk types HPV DNA (31,33,35,3 9,45,51,52, 56,58,59,66 and 68) without differentia tion. Limitations : A negative result does NOT preclude the presence of HPV infection because results depend on adequate specimen collection, absence of inhibitors and sufficient DNA to be detected. Correlation with cytologic findings is recommended as applicable. Questions about process or methodology contact Molecular Department at or [phone]. Unknown Organizat ion AP Specimen s HPV Genotype 18 Negative 19 (12/10/22 3:14 PM) 12/10 N Interpretiv e Data: HPV GENOTYPE 18 Negative: NEGATIVE for HPV genotype 18 DNA. HPV GENOTYPE 18 Positive: POSITIVE for HPV genotype 18 DNA. Limitations : A negative result does NOT preclude the presence of HPV infection because results depend on adequate specimen collection, absence of inhibitors and sufficient DNA to be detected. Correlation with cytologic findings is recommended as applicable. Questions about process or methodology contact Molecular Department at or [phone]. 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 [id number] 09 Cytology Gynecolo gic Report Patient: Lizzeth Aaron Specimen #: [id number] [facility] ID:: [id number] Encounte r #: [id number] Taken: 3 15:14 /Age: 9 1960 (Age: 62) Received : 3 15:04 Physicia n(s:): [place] Reported : 3 Specimen (s) Received Taken Rec Thin Prep - Cervical w/o reflex HPV 3 15:14 3 15:04 Final Diagnosi s Thin Prep - Cervical w/o reflex HPV: Satisfac tory for evaluati on; endocerv ical componen t present. Negative for intraepi thelial lesion or malignan cy. Non-neop lastic findings : atrophic pattern. This Pap test was evaluate d with the assistan ce of the Thin Prep Imaging System. Elect ronicall y Signed by RIKA HOWE * Clinical Diagnosi s and History last 2017, nilm Prior History Signed Out Specimen # Interpre tation 12/11/19 18 [id number] Negative for Intraepi thlial Lesion or Malignan cy 04/09/20 13 [id number] NEGATIVE 12/30/19 10 [id number] NEGATIVE 03/18/20 08 [id number] NEGATIVE 03/04/20 07 [id number] NEGATIVE CPT Codes: A; 93123 The Pap test is a screenin g test for precurso rs of squamous cell carcinom a with an irreduci ble false negative rate of around 5%. It is not designed to detect glandula r lesions. A negative test does not ensure that no disease is present. 12/10 0055C-375 th [facility] Monocyte % Auto 8 % 1 - 12 11/22 N 0055A-375 th [facility] Neutro Absolute 2.1 x10^3/mc L 2.0 - 7.0103 11/22 N 0055A-375 th [facility] Lymph Absolute 2.1 x10^3/mc L 1.2 - 4.0103 11/22 N 0055A-375 th [facility] H[facility] [place] Absolute 0.4 x10^3/mc L 0.2 - 0.8103 11/22 N 0055A-375 th [facility] Neutrophil % Auto 45.7 % 46.0 - 77.0 11/22 L [facility] Baso Absolute 0.0 x10^3/mc L 0.0 - 0.1103 11/22 N [facility] Eos Absolute 0.0 x10^3/mc L 0.0 - 0.7103 11/22 N [facility] Eosinophil % Auto 1 % 0 - 5 11/22 N [facility] Basophil % Auto 0.4 % 0.0 - 2.5 11/22 N [facility] Lymphocyte % Auto 45.0 % 20.0 - 40.0 11/22 H [facility] Chemistr y Vit B12 Lvl.LC 246 pg/mL 11/22 [facility] Chemist[facility] y Folate.LC 16.9 ng/mL 11/22 Result Comment: A serum folate concentrati on of less than 3.1 ng/mL is considered to represent clinical deficiency. Performed At: [address] [id number] Obi Urena PhD Ph:[phone] [facility] y Vitamin D 25 OH 54.4 ng/mL 30.0 - 100.0 11/22 N Interpretiv e Data: Classificat ion of Vitamin D Status: Deficient: <20 ng/mL Insufficien t: 20-29 ng/mL Sufficient: 30-100 ng/mL Possible Toxicity: >100 ng/mL This assay is for the quantitativ e determinati on of total 25 (OH) vitamin D. It is intended as an aid in the determinati on of vitamin D sufficiency . Results should always be interpreted in conjunction with the patient's medical history, clinical presentatio n, and other findings. Testing performed by [facility]. 56[facility]A-[facility] EPILAB Chemistr y eGFR CKD EPI 84 mL/min/1 .73_m2 11/22 Interpretiv e Data: Estimated Glomerular Filtration Rate (eGFR) calculated using the 2020 Chronic Kidney Disease-Epi demiology (CKD-EPI) Collaborati on creatinine equation; units of measure are mL/min/1.73 m2. Results are only valid for adults (>=18 years) whose serum creatinine is in steady state. eGFR calculation s are not valid for patients with acute kidney injury and for patients on dialysis. Creatinine- based estimates of kidney function may also be inaccurate in patients with reduced creatinine generation due to decreased muscle mass (e.g., malnutritio n, severe hypoalbumin emia, sarcopenia, chronic neuromuscul ar disease, amputations , severe heart failure or liver disease) and in patients with increased creatinine generation due to increased muscle mass (e.g., muscle builders, anabolic steroids) or increased dietary intake. CKD is diagnosed based on abnormaliti es of kidney structure or function, present for >3 months, with implication s for health and disease. CKD is classified and staged based on cause, eGFR and albuminuria (quantified as urine albumin to creatinine ratio). An eGFR >60 mL/min/1.73 m2 in the absence of increased urine albumin excretion or structural abnormaliti es does not CKD. eGFR provides only an estimate of measured GFR within +/- 30% for most patients. As mentioned, nutritional status and muscle mass, among many factors, may lead to inaccuracy in the estimate. Consider ordering the creatinine- cystatin C panel if better accuracy is needed for clinical decision-nancy krishnan. eGFR (mL/min/1.7 3 m2) CKD stage Interpretat ion Normal 60-89 Mild decrease 45-59 Mild to moderate decrease 30-44 Moderate to severe decrease 15-29 Severe decrease <15 Kidney failure [facility] MCV 99 fL 80 - 97 11/22 H [facility] Hemoglobin 13.1 g/dL 11.0 - 15.0 11/22 N [facility] Hemat[facility] Hematocrit 40 % 34 - 46 11/22 N [facility] MCHC 33.1 g/dL 33.0 - 36.5 11/22 N [facility] MCH 33 pg 28 - 33 11/22 N [facility] RBC 4.0 x10^6/mc L 3.6 - 5.0106 11/22 N [facility] Platelets 226.0 x10^3/mc L 150.0 - 450.0103 11/22 N [facility] Hematolo gy WBC 4.6 x10^3/mc L 4.0 - 11.0103 11/22 N [facility] RDW 13.0 % 11.0 - 14.9 11/22 N [facility] Hemat[facility] MPV 10.9 fL 7.4 - 10.4 11/22 H [facility] Chemistr y Hemoglobin A1c 5.1 % 4.0 - 5.6 11/22 N Interpretiv e Data: Normal: 4.0 - 5.6% Increased Risk: 5.7 - 6.4% Diabetic Range: 6.5% For patients without diabetes, the normal range for the hemoglobin A1c test is between 4% and 5.6%. Hemoglobin A1c levels between 5.7% and 6.4% indicate increased risk of diabetes, and levels of 6.5% or higher indicate diabetes. Because studies have repeatedly shown that out-of-cont rol diabetes results in complicatio ns from the disease, the goal for people with diabetes is a hemoglobin A1c less than 7%. The higher the hemoglobin A1c, the higher the risks of developing complicatio ns related to diabetes. If confirmatio n is needed, consider recalling the patient and ordering Hemoglobin Electrophor esis. [facility] Chemist[facility] y eAvg Glucose 100 mg/dL 11/22 [facility] Chemist[facility] y CO2 28 mmol/L 22 - 29 11/22 N [facility] Chemistr y Creatinine Level 0.80 mg/dL 0.57 - 1.11 11/22 N [facility] Chemistr y Glucose Lvl 92 mg/dL 74 - 99 11/22 N [facility] Chemist[facility] y Chloride 106 mmol/L 98 - 107 11/22 N [facility] Chemistr y BUN/Creat Ratio 24 mg/dL 12 - 20 11/22 H - [facility] Chemistr y Calcium 10.1 mg/dL 8.4 - 10.2 11/22 N [facility] Chemistr y Potassium Lvl 4.4 mmol/L 3.5 - 5.1 11/22 N [facility] Chemistr y Sodium 143 mmol/L 136 - 145 11/22 N [facility] Chemistr y Protein Total 7.4 g/dL 6.4 - 8.3 11/22 N [facility] Chemist[facility] y Bilirubin Total 0.4 mg/dL 0.2 - 1.2 11/22 N [facility] Chemist[facility] y BUN 19 mg/dL 7 - 20 11/22 N 375 [facility] Chemist[facility] y Alk Phos 37 U/L 40 - 150 11/22 L [facility] Chemist[facility] y ALT 20 U/L 5 - 55 11/22 N [facility] Chemist[facility] y AST 21 U/L 5 - 34 11/22 N [facility] Chemist[facility] y AGAP 9.00 0.00 - 15.00 11/22 N [facility] Chemist[facility] y Albumin 4.00 g/dL 3.50 - 5.20 11/22 N [facility] Chemist[facility] y Cholestero l Total 207 mg/dL 11/22 H Interpretiv e Data: According to the [place] [employer] : AGES 0-19: Desirable: < 170 mg/dL Borderline High: 170-199 mg/dL High Blood Cholesterol : >/= 200 mg/dL ADULTS: Desirable < 200 mg/dL Borderline High: 200-239 mg/dL High Blood Cholesterol : >/= 240 mg/dL [facility] Chem[facility] y Chol/HDL 3 mg/dL 11/22 [facility] Chemist[facility] y HDL Cholestero l 73 mg/dL 40 - 59 11/22 H Interpretiv e Data: HDL (HIGH DENSITY LIPOPROTEIN ): ADULTS: Low: < 40 mg/dL High: >/= 60 mg/dL AGES 0 -19: Low: < 40 mg/dL Borderline Low: 40 - 45 mg/dL Acceptable: > 45 mg/dL [facility] Chemist[facility] y LDL 120 mg/dL 100 - 130 11/22 N Interpretiv e Data: AGES 0-19: Desirable: < 110 mg/dL Borderline High: 110-129 mg/dL High: >/= 130 mg/dL ADULTS: Desirable: <100 mg/dL Near/above optimal: 100-130 mg/dL Borderline High: 131-159 mg/dL High: 160-189 mg/dL Very High: 190 mg/dL [facility] Chemist[facility] y LDL/HDL 2 11/22 [facility] Chemist[facility] y Triglyceri lizette 35 mg/dL 7 - 149 11/22 N Interpretiv e Data: AGES 0-9: Desirable: < 75 mg/dL Borderline High: 75-99 mg/dL High: >/= 100 mg/dL AGES 10-19: Desirable: < 90 mg/dL Borderline High: 90-129 mg/dL High: >/= 130 mg/dL ADULTS: Desirable: < 150 mg/dL Borderline High: 150-199 mg/dL High: >/= 240 mg/dL Very High: >/= 500 mg/dL [facility] Chemist[facility] y TSH 0.406 mIU/L 0.270 - 4.200 11/22 N Interpretiv e Data: Recommend: TPO/Thyrope roxidase Antibody when TSH result is > 4.2 uIU/mL [address] [place] [address] EPILAB Vital Signs Combined list of inpatient and outpatient Vital Signs from Department of Defense and Veterans Affairs, ranging from 12 months to all on record, depending upon the facility. Vital Sign Value Date Comments Source Temperature Oral 36.9 Mari 12/10/2022 13:39:00 00[facility] Systolic Blood Pressure 105 mm[Hg] 12/10/2022 13:39:00 [facility] Diastolic Blood Pressure 72 mm[Hg] 12/10/2022 13:39:00 00[facility] Peripheral Pulse Rate 81 bpm 12/10/2022 13:39:00 00[facility] Mean Arterial Pressure, Cuff (Calc) 83 mm[Hg] 12/10/2022 13:39:00 [facility] Respiratory Rate 16 br/min 12/10/2022 13:39:00 00[facility] Blood Pressure Manual Automatic 01/30/2023 13:36:00 00[facility] Systolic Blood Pressure 111 mm[Hg] 01/30/2023 13:36:00 00[facility] Diastolic Blood Pressure 72 mm[Hg] 01/30/2023 13:36:00 00[facility] Mean Arterial Pressure, Cuff (Calc) 85 mm[Hg] 01/30/2023 13:36:00 00[facility] BP Site Left arm 01/30/2023 13:36:00 0055C -[facility] Temperature Oral 36.8 Mari 01/30/2023 13:36:00 00[facility] Respiratory Rate 16 br/min 01/30/2023 13:36:00 00[facility] Peripheral Pulse Rate 79 bpm 01/30/2023 13:36:00 00[facility] Peripheral Pulse Rate 67 bpm 11/27/2022 14:33:00 00[facility] Respiratory Rate 16 br/min 11/27/2022 14:33:00 00[facility] Temperature Oral 36.2 Mari 11/27/2022 14:33:00 00[facility] BP Site Left arm 11/27/2022 14:33:00 0055C -[facility] Blood Pressure Manual Automatic 11/27/2022 14:33:00 00[facility] Mean Arterial Pressure, Cuff (Calc) 87 mm[Hg] 11/27/2022 14:33:00 00[facility] Systolic Blood Pressure 110 mm[Hg] 11/27/2022 14:33:00 00[facility] Diastolic Blood Pressure 76 mm[Hg] 11/27/2022 14:33:00 00[facility] Mean Arterial Pressure, Cuff (Calc) 88 mm[Hg] 11/29/2023 14:01:00 00[facility] Peripheral Pulse Rate 72 bpm 11/29/2023 14:01:00 00[facility] Respiratory Rate 14 br/min 11/29/2023 14:01:00 00[facility] Systolic Blood Pressure 114 mm[Hg] 11/29/2023 14:01:00 00[facility] Diastolic Blood Pressure 75 mm[Hg] 11/29/2023 14:01:00 [facility] Temperature Oral 36.8 Mari 11/29/2023 14:01:00 00[facility] BP Site Left arm 11/29/2023 14:01:00 0055C -[facility] Blood Pressure Manual Automatic 11/29/2023 14:01:00 00[facility] Peripheral Pulse Rate 85 bpm 06/25/2024 14:38:00 00[facility] Mean Arterial Pressure, Cuff (Calc) 93 mm[Hg] 06/25/2024 14:38:00 00[facility] Systolic Blood Pressure 120 mm[Hg] 06/25/2024 14:38:00 00[facility] Diastolic Blood Pressure 80 mm[Hg] 06/25/2024 14:38:00 00[facility] Blood Pressure Manual Automatic 01/25/2023 15:42:00 00[facility] BP Site Left arm 01/25/2023 15:42:00 0055C -[facility] Respiratory Rate 16 br/min 01/25/2023 15:42:00 00[facility] Peripheral Pulse Rate 70 bpm 01/25/2023 15:42:00 00[facility] Mean Arterial Pressure, Cuff (Calc) 93 mm[Hg] 01/25/2023 15:42:00 00[facility] Temperature Oral 36.8 Mari 01/25/2023 15:42:00 00[facility] Systolic Blood Pressure 126 mm[Hg] 01/25/2023 15:42:00 00[facility] Diastolic Blood Pressure 77 mm[Hg] 01/25/2023 15:42:00 00[facility] Systolic Blood Pressure 109 mm[Hg] 03/15/2023 19:47:00 00[facility] Diastolic Blood Pressure 75 mm[Hg] 03/15/2023 19:47:00 00[facility] Respiratory Rate 18 br/min 03/15/2023 19:47:00 00[facility] Peripheral Pulse Rate 82 bpm 03/15/2023 19:47:00 00[facility] Mean Arterial Pressure, Cuff (Calc) 86 mm[Hg] 03/15/2023 19:47:00 00[facility] Temperature Oral 36.7 Mari 03/15/2023 19:47:00 00[facility] Blood Pressure Manual Automatic 03/15/2023 19:47:00 00[facility] BP Site Left arm 03/15/2023 19:47:00 0055C -[facility] Encounters Combined list of: 1) Encounters from Department of Veterans Affairs facilities going backup to the last 18 months, not all VA inpatient encounters are included; 2) Encounters from the Department of Defense facilities going backup to 280 months. Location Location Details Encounter Type Encounter Number Reason For Visit Attending Provider ADM Date DC Date Status Disposition Source [address] [place] [address] [facility] conor Practice Non-GME FHI1) TELE CONSULT [id number] med refRENO Prajapati 12/[address] [place] [address] [facility])(F amily Practic e Non-GME FHI1) [address] [place] [address] [facility])([facility] conor Practice Non-GME FHI1) TELE CONSULT [id number] med FIDEL Frost 03/[address] [place] [address])(F amily Practic e Non-GME FHI1) [address] [place] [address])(Fam conor Practice Non-GME FHI1) TELE CONSULT [id number] 0747-va d alex- FIDEL Leal 07/[address] [place] [address])(F amily Practic e Non-GME FHI1) [address] [place] [address])([facility] conor Practice Non-GME FHI1) TELE CONSULT [id number] RANDY PEDERSEN 10/[address] [place] [address])(F amily Practic e Non-GME FHI1) [address] [place] [address])(Fam conor Practice Non-GME FHI1) TELE CONSULT [id number] [facility] K--RANDY LANDRY 10/[address] [place] [address])(F amily Practic e Non-GME FHI1) [address] [place] [address])([facility] conor Practice Non-GME FHI1) TELE CONSULT [id number] Thyroid meds-FIDEL Tenorio 10/[address] [place] [address])(F amily Practic e Non-GME FHI1) [address] [place] [address])([facility] conor Practice Non-GME FHI1) TELE CONSULT [id number] RANDY PEDERSEN 12/[address] [place] [address])(F amily Practic e Non-GME FHI1) [address] [place] [address])([facility] conor Practice Non-GME FHI1) TELE CONSULT [id number] Med refill -ANAYA High 01/[address] [place] [address])(F amily Practic e Non-GME FHI1) [address] [place] [address])(Fam conor Practice Non-GME FHI2) OUTPATIENT [id number] well woman exam ALCIRA MAHER 01/28 Released w/o Limitations [address] [place] [address])(F amily Practic e Non-GME FHI2) [employer] ([facility])([facility] Practice Non-GME FHI2) TELE CONSULT [id number] Lab results additio nal testing JOI DUNHAM A 01/[address] [place] [address] [employer] ([facility])(F amily Practic e Non-GME FHI2) [facility] ([facility])([facility] Practice Non-GME FHI1) OUTPATIENT [id number] annual pap RANDY PEDERSEN 02/01 Released w/o Limitations [facility] ([facility])(F amily Practic e Non-GME FHI1) 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)(F amily Practic e Non-GME FHI2) 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 Medical [facility] [employer] ([facility] OUTPATIENT [id number] finger lac DOUGLAS GARFIELD A 07/08 Released w/o Limitations [facility] [employer] ([facility]) 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 [id number] DYSPLAS IA PT - ANNUAL EXAM EMRE MEADOWS 03/15 Released w/o Limitations [address] [place] [address])(G ynecolo gy) [address] [place] [address])(Fam conor Practice Non-GME FHI1) OUTPATIENT [id number] fol meds well butrin/ nexium resched fr Mar STEVEN FORREST 04/02 Released w/o Limitations [address] [place] [address])(F amily Practic e Non-GME FHI1) [address] [place] [address])(Fam conor Practice Non-GME FHI1) TELE CONSULT [id number] Lab results CARLYN CASTRO 04/[address] [place] [address])(F amily Practic e Non-GME FHI1) [address] [place] [address])(Fam conor Practice Non-GME FHI1) OUTPATIENT [id number] having shortne ss of breath [phone] STEVEN FORREST 05/19 Released w/o Limitations [address] [place] [address])(F amily Practic e Non-GME FHI1) [address] [place] [address])(Fam conor Practice Non-GME FHI1) TELE CONSULT [id number] Lab call back CARLYN CASTRO 06/[address] [place] [address])(F amily Practic e Non-GME FHI1) [address] [place] [address])(Sco tt BF Fam Res Tm Red) TELE CONSULT [id number] referra DIANA Bledsoe 08/16 [employer] ([facility])([facility] Fam Res Tm Red) [facility] [employer] ([facility])(War rior Op Med Cln Tm A Ad) OUTPATIENT [id number] Back pain [phone] CELESTINE NOVOA 11/26 Released w/o Limitations [facility] [employer] ([facility])(W arrior Op Med Cln Tm A Ad) [facility] [employer] [facility])([facility] Team 4) TELE CONSULT [id number] Rx refill- [place] CELESTINE LEAL R 12/[address] [place] [address] [employer] ([facility])([facility] Team 4) [address] [place] [address] [employer] [facility])([facility] Team 4) TELE CONSULT [id number] [place] /having back spasms CELESTINE LEAL R 12/[address] [place] [address] [facility] ([facility])([facility] Team 4) [address] [place] [address] [employer] [facility])([facility] Team 4) TELE CONSULT [id number] Referra l Request CELESTINE LEAL R 12/[address] [place] [address] Group [facility] ([facility])([facility] Team 4) [address] [place] [address] [employer] [facility])([facility] Team 4) OUTPATIENT [id number] NEW PT APPT [phone] APRIL FARNSWORTH 04/08 Released w/o Limitations [facility] ([facility])([facility] Team 4) [address] [place] [address] [employer] [facility])([facility] Team 4) TELE CONSULT [id number] [place] /rx request MEKA AHUJA 05/[address] [place] [address] [employer] ([facility])([facility] Team 4) [address] [place] [address] [employer] [facility])([facility] Team 4) TELE CONSULT [id number] Lab review CELESTINE LEAL R 05/[address] [place] [address] [employer] ([facility])([facility] Team 4) [address] [place] [address] [employer] [facility])([facility] Team 4) OUTPATIENT [id number] headach es APRIL FARNSWORTH 06/30 Released w/o Limitations [address] [place] [address] [facility] Team 4) [address] [place] [address] [facility])(War rior Op Med Cln Tm A Ad) TELE CONSULT [id number] rx refill- sythroi d 125mg-2 [phone] MEL CELESTINE R 11/10 Referred for Appointment [address] [place] [address] [facility])(W arrior Op Med Cln Tm A Ad) [address] [place] [address] [facility])(War rior Op Med Cln Tm A Ad) OUTPATIENT [id number] phy. [phone] APRIL FARNSWORTH 12/16 Released w/o Limitations [address] [place] [address] [facility])(W arrior Op Med Cln Tm A Ad) [address] [place] [address] [facility])(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 [id number] NORMAL ROUTINE HISTORY AND PHYSICA GABRIELLE VUONG 12/23 Released w/o Limitations [address] [place] [address] [facility])(G ynecolo gy) [address] [place] [address] [facility])(War rior Op Med Cln Tm A Ad) OUTPATIENT [id number] shoulde r pain [phone] APRIL FARNSWORTH 07/13 Released w/o Limitations [address] [place] [address])(W arrior Op Med Cln Tm A Ad) [address] [place] [address])(War rior Op Med Cln Tm A Ad) TELE CONSULT [id number] Patient request ing refill of thyroid meds LEAL, CELESTINE R 08/[address] [place] [address] [facility])(W arrior Op Med Cln Tm A Ad) [address] [place] [address] [facility])(War rior Op Med Cln Tm A Ad) TELE CONSULT [id number] Medicat ion Refill - Marcelo l/210-4 543/cad OBI Moore 10/[address] [place] [address] [facility])(W arrior Op Med Cln Tm A Ad) [address] [place] [address] [facility])(Fam conor Med Tm B Non-AD BCC) TELE CONSULT [id number] Medicat ion Refill- Camp[place] l/210-4 543/cad kk CHHOEUN, KYAW R 01/[address] [place] [address] [facility] BEHZADSwati ([facility])(F amily Med Tm B Non-AD BCC) [address] [place] [address] [facility] ([facility])(Fam conor Med Tm B Non-AD BCC) OUTPATIENT [id number] physica l [phone] JENAE STRONG 02/06 Released w/o Limitations [address] [place] [address] Group [facility]HZADB ([facility])(F amily Med Tm B Non-AD BCC) [address] [place] [address] Group Andrews BEHZADB ([facility])(Fam conor Med Tm B Non-AD BCC) TELE CONSULT [id number] med refill/ [place] l/210.4 543/mnm CHHOEDELMIRA, KYAW R 04/[address] [place] [address] Andrews RODRIGUEZ ([facility])(F amily Med Tm B Non-AD BCC) [address] [place] [address] Andrews WENB ([facility])(Fam conor Med Tm B Non-AD BCC) OUTPATIENT [id number] F/U med refill and phy [phone] ERICA CORDOBA 01/22 Released w/o Limitations [address] [place] [address] Group Andrews BEHZADB ([facility])(F amily Med Tm B Non-AD BCC) [address] [place] [address] [employer] ([facility])(Fam conor Med Tm B Non-AD BCC) TELE CONSULT [id number] Notes Entered by: OTTO LEONARD 31 Mar 2012 1512 ------- ------- ------- ------- -- Med refill; only one pill left CELESTINE Phillips 03/[address] [place] [address] Group Andrews RODRIGUEZ ([facility])(F amily Med Tm B Non-AD BCC) [address] [place] [address] Andrews RODRIGUEZ ([facility])(Sco tt [facility] Fam Res Tm Green) OUTPATIENT [id number] 2nd floor Andrews RODRIGUEZ/NOMI Sanchez 04/02 Released w/o Limitations [address] [place] [address] Andrews RODRIGUEZ ([facility])(S cott [facility] Fam Res Tm Green) [address] [place] [address] Andrews RODRIGUEZ ([facility])(Sco tt [facility] FAMRES Tm Blue) TELE CONSULT [id number] Notes Entered by: APRIL MEZA 02 Apr 2012 1403 ------- ------- ------- ------- -- Call back C-scope on 5dec12- APRIL Jurado 04/[address] [place] [address] Andrews BEHZADB ([facility])(S cott [facility] FAMRES Tm Blue) [address] [place] [address] Andrews B [facility]Fam conor Med Tm B Non-AD BCC) OUTPATIENT [id number] rib pain since Saturda y [id number] JENAE STRONG 11/13 Released w/o Limitations [address] [place] [address] [employer] ([facility])(F amily Med Tm B Non-AD BCC) [address] [place] [address] [employer] ([facility])(Fam conor Med Tm B Non-AD BCC) TELE CONSULT [id number] Notes Entered by: JENAE ABRAHAM 13 Nov 2012 1545 ------- ------- ------- ------- -- Xray results LASHONDA HOLLINGSWORTH 11/[address] [place] [address] Andrews WENB [facility])(F amily Med Tm B Non-AD BCC) [address] [place] [address] Andrews WENB [facility])(Fam conor Med Tm B Non-AD BCC) OUTPATIENT [id number] f/u on meds. - JENAE STRONG 02/04 Released w/o Limitations [address] [place], [place] [address]B [facility])(F amily Med Tm B Non-AD BCC) [address] [place] [address] Andrews B 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)(Fam conor Med Tm B Non-AD BCC) TELE CONSULT [id number] Notes Entered by: OTTO LEONARD 29 Jul 2013 0952 ------- ------- ------- ------- -- Request ing appt on 04 August Marcelo fuentes BIANCA HERMAN 07/[address] [place] [address] Group Andrews WENB [facility])(F amily Med Tm B Non-AD BCC) [address] [place] [address] Andrews WENB [facility])(Fam conor Med Tm B Non-AD BCC) OUTPATIENT [id number] [place] JENAE STRONG 08/03 Released w/o Limitations [address] [place] [address] Andrews WENB [facility])(F amily Med Tm B Non-AD BCC) [address] [place] [address] Andrews WENB [facility])(Fam conor Med Tm B Non-AD BCC) TELE CONSULT [id number] Notes Entered by: JERAMY LOONEY 01 Sep 201314 ------- ------- ------- ------- -- Med refill/ vlad / KULWANT BANKS 09/[address] [place] [address] Andrews RODRIGUEZ [facility])(F amily Med Tm B Non-AD BCC) [address] [place] [address] Andrews [facility])(Fam conor Med Tm B Non-AD BCC) OUTPATIENT [id number] Medicat ion check and refill DANIEL TOBAR 09/08 Released w/o Limitations [address] [place] [address] Andrews RODRIGUEZ [facility])(F amily Med Tm B Non-AD BCC) [address] [place] [address] Andrews WENB [facility])(Fam conor Med Tm B Non-AD BCC) OUTPATIENT [id number] physica l and med review KIM CHILDRESS 03/03 Released w/o Limitations [address] [place] [address] Andrews WENB [facility])(F amily Med Tm B Non-AD BCC) [address] [place] [address] Andrews WENB [facility])(Med ication Refill Clinic) TELE CONSULT [id number] Med refill - Vlad Echevarria [phone] -[id number] Hogan 09/[address] [place] [address] Andrews RODRIGUEZ [facility])(Justina gaines on Refill Clinic) [address] [place] [address] Andrews WENB [facility])(Fam conor Med Tm B Non-AD BCC) OUTPATIENT [id number] general physica l//210. 35715 BART WALL 11/12 Released w/o Limitations [address] [place] [address] Group Andrews B ([facility])(F amily Med Tm B Non-AD BCC) [address] [place] [address])(Fam conor Med Tm B Non-AD BCC) TELE CONSULT [id number] Notes Entered by: KWAME WALL 22 Nov 2014 0636 ------- ------- ------- ------- -- Prov - lab [place] GAUTHIER 11/22 Referred for Appointment [address] [place] [address])(F amily Med Tm B Non-AD BCC) [address] [place], [place] [address]B ([facility])(Fam conor Med Tm B Non-AD BCC) TELE CONSULT [id number] Notes Entered by: CARLYN TREVIZO 06 Dec 2014 1034 ------- ------- ------- ------- -- Network results Teresa l Therapy 015 JACOB WEBBER 12/[address] [place] [address])(F amily Med Tm B Non-AD BCC) [address] [place], [place] [address]B ([facility])(Med ication Refill Clinic) TELE CONSULT [id number] Notes Entered by: Lit GAONA 10 Mar 2015 0818 ------- ------- ------- ------- -- Med Renewal - Med ? / Nya / TEO VINSON 03/[address] [place] [address] ([facility])(Justina gaines on Refill Clinic) [address] [place] [address] Andrews B [facility])(Fam conor Med Tm B Non-AD BCC) OUTPATIENT [id number] Notes Entered by: ALYCIA ABRAHAM 22 Mar 2015 1305 ------- ------- ------- ------- -- walk in b12 TEO VINSON 03/22 Released w/o Limitations [address] [place], [place] [address]B ([facility])(F amily Med Tm B Non-AD BCC) [facility] [facility])(Med ication Refill Clinic) TELE CONSULT [id number] Notes Entered by: GILLIAN AGUILAR 29 Aug 2015 0809 ------- ------- ------- ------- -- Med Renewal /Gleave /210.45 43 EZEKIEL OCONNOR 08/[address] [place] [address])(M edicati on Refill Clinic) [address] [place] [address])(Med ication Refill Clinic) TELE CONSULT [id number] Notes Entered by: RERE ESPANA 28 Nov 2015 1329 ------- ------- ------- ------- -- Med bridge/ Gleave/ /c lm EZEKIEL OCONNOR 11/[address] [place] [address])(M edicati on Refill Clinic) [address] [place] [address])(Fam conor Med Tm B Non-AD BCC) OUTPATIENT [id number] annual physica l TALISHA BARRETT 12/19 Released w/o Limitations [address] [place] [address])(F amily Med Tm B Non-AD BCC) [address] [place] [address])(Fam conor Med Tm B Non-AD BCC) TELE CONSULT [id number] Notes Entered by: RERE ESPANA 12 Mar 2016 1246 ------- ------- ------- ------- -- Sx: Left ear pain/Gl eave/21 0.4543/ CHRISTIANO Almazan 03/12 Referred for Appointment [address] [place] [address])(F amily Med Tm B Non-AD BCC) [address] [place] [address])(Fam conor Med Tm B Non-AD BCC) TELE CONSULT [id number] Notes Entered by: ROWAN WOLFE 20 Jun 2016 1422 ------- ------- ------- ------- -- Network Results - Optomet ry 6 BG TEO VINSON 06/[address] [place] [address] Andrews [facility])(F amily Med Tm B Non-AD BCC) [address] [place] [address] Andrews [facility])(Fam conor Med Tm B Non-AD BCC) OUTPATIENT [id number] annual check up TEO VINSON 11/13 Released w/o Limitations [address] [place] [address] Andrews [facility])(F amily Med Tm B Non-AD BCC) [address] [place] [address] Andrews [facility])(Fam conor Med Tm B Non-AD BCC) OUTPATIENT [id number] virtual appt TEO VINSON 11/19 Released w/o Limitations [address] [place] [address] Andrews RODRIGUEZ [facility])(F amily Med Tm B Non-AD BCC) [address] [place] [address] Andrews [facility])(Fam conor Med Tm B Non-AD BCC) TELE CONSULT [id number] Notes Entered by: VIDYA OJEDA DO 19 Nov 2016 1151 ------- ------- ------- ------- -- Lab result/ Nya/ BAYRON CHAMBERS 11/19 Other Not Elsewhere Classified [address] [place] [address] Andrews RODRIGUEZ [facility])(F amily Med Tm B Non-AD BCC) [address] [place] [address] Andrews [facility])(Fam conor Med Tm B Non-AD BCC) TELE CONSULT [id number] Notes Entered by: OG MILLER 23 Nov 2016 0827 ------- ------- ------- ------- -- Test Results / Nya / [id number] - sgj CHRISTIANO MONCADA 11/23 Referred for Appointment [address] [place] [address] Andrews [facility])(F amily Med Tm B Non-AD BCC) [address] [place] [address] Andrews [facility])(Fam conor Med Tm B Non-AD BCC) TELE CONSULT [id number] Notes Entered by: Lit GAONA 05 Dec 2016 1530 ------- ------- ------- ------- -- Repeat Chest X-ray Results Request / Nya/ [id number] 3 - [facility] TEO VINSON 12/[address] [place] [address])(F amily Med Tm B Non-AD BCC) [address] [place] [address])(Sco tt [facility]) TELE CONSULT [id number] Notes Entered by: RERE ESPANA 25 Oct 2017 1031 ------- ------- ------- ------- -- Med Renewal /Nya /210.45 43/clKULWANT Euceda 10/[address] [place] [address])(S [facility]) [address] [place] [address])(Fam conor Med Tm B Non-AD BCC) OUTPATIENT [id number] Yearly f/u and increas ed anxiety TEO VINSON 11/06 Released w/o Limitations [address] [place] [address])(F amily Med Tm B Non-AD BCC) [address] [place] [address])(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 [id number] annual e - [phone] CHARANJIT FAIR 12/04 Released w/o Limitations [address] [place] [address])(G ynecolo gy) [address] [place] [address])(Fam conor Med Tm B Non-AD BCC) TELE CONSULT [id number] Notes Entered by: RERE ESPANA 31 Jan 2018 0832 ------- ------- ------- ------- -- Med Renewal /Nya // clm KULWANT BANKS 01/31 Referred for Appointment [address] [place] [address])(F amily Med Tm B Non-AD BCC) [address] [place] [address])(War rior Op Med Cln Tm A Ad) TELE CONSULT [id number] 1 Notes Entered by: JAYLEN HARDY 03 Nov 2018 1432 ------- ------- ------- ------- -- Med bridge/ .210.45 43 mn PRETTY LAUREANO 11/[address] Classified [facility] [employer])(W arrior Op Med Cln Tm A Ad) [facility] [employer])(War rior Op Med Cln Tm A Ad) OUTPATIENT [id number] 3 med renewal and annual medical physica l [id number] AUGUST, CATHERINE Cadena 11/24 Released w/o Limitations [facility] [employer])(W arrior Op Med Cln Tm A Ad) [address] [place] [address] [facility] [employer])(War rior Op Med Cln Tm A Ad) TELE CONSULT [id number] 5 Notes Entered by: RERE ESPANA 15 Dec 2018 1135 ------- ------- ------- ------- -- Med Renewal / 8.210.4 543/clm KULWANT BANKS 12/[address] [facility] [employer])(W arrior Op Med Cln Tm A Ad) [facility] [employer])(War rior Op Med Cln Tm A Ad) OUTPATIENT [id number] [address] [facility]/e r [phone] [phone], CATHERINE Cadena 02/17 Released w/o Limitations [facility] [employer])(W arrior Op Med Cln Tm A Ad) [facility] [employer])(War rior Op Med Cln Tm A Ad) TELE CONSULT [id number] 2 Notes Entered by: OG MILLER 16 Apr 2019 1038 ------- ------- ------- ------- -- Special ist F/U / Lopez l Request - Appt Apr-Gla ucoma Test /-454 3 sgPRETTY Lawrence 04/16 Other [address] Elsewhere Classified [facility] [employer])(W arrior Op Med Cln Tm A Ad) [facility] [employer])(War rior Op Med Cln Tm A Ad) TELE CONSULT [id number] 2 Notes Entered by: STEFFANY SAM 17 Apr 2019 0700 ------- ------- ------- ------- -- Medicat ion Refill/ August/ KULWANT BANKS 04/17 Medication Refill Forwarded [address] [place] [address] Group [employer])(W arrior Op Med Cln Tm A Ad) [address] [place] [address] [facility] [employer])(War rior Op Med Cln Tm A Ad) TELE CONSULT [id number] Notes Entered by: Rivera LOZANO 29 Jun 2019 0908 ------- ------- ------- ------- -- Network results Derm 06/24/19 20 B AUGUSTCATHERINE 06/28 [facility] [employer])(W arrior Op Med Cln Tm A Ad) [address] [place] [address] [facility] [employer])(War rior Op Med Cln Tm A Ad) TELE CONSULT [id number] 5 Notes Entered by: Rivera LOZANO 30 Jun 2019 0906 ------- ------- ------- ------- -- Network results Derm 0 TSB AUGUSTCATHERINE 06/[address] [place] [address] Group [employer])(W arrior Op Med Cln Tm A Ad) [address] [place] [address])(War rior Op Med Cln Tm A Ad) TELE CONSULT [id number] 4 Notes Entered by: Rivera LOZANO 02 Jul 2019 0911 ------- ------- ------- ------- -- Network results Optomet ry 0 TSB TIFFANI MAY 07/[address] [place] [address])(W arrior Op Med Cln Tm A Ad) [address] [place] [address] Andrews [facility])(War rior Op Med Cln Tm A Ad) TELE CONSULT [id number] 6 Notes Entered by: NEVA LANG 26 Aug 2019 1323 ------- ------- ------- ------- -- Network results Dermato logy 020 AUGUSTCAHTERINE 08/[address] [place] [address] Andrews [facility])(W arrior Op Med Cln Tm A Ad) [address] [place] [address])(Fam conor Med Tm B Non-AD BCC) TELE CONSULT [id number] Notes Entered by: Pool OJEDA 25 Sep 2019 1550 ------- ------- ------- ------- -- Network results Dermato logy 020 KJD AUGUSTCATHERINE 09/[address] [place] [address] Andrews [facility])(F amily Med Tm B Non-AD BCC) [address] [place] [address] Andrews [facility])(Fam conor Med Tm B Non-AD BCC) TELE CONSULT [id number] 6 Notes Entered by: JEREMY ANTHONY 09 Dec 2019 1356 ------- ------- ------- ------- -- SX BACK PAIN/MA Y/ PRETTY YIN 12/08 Other Not Elsewhere Classified [address] [place] [address] Andrews [facility])(F amily Med Tm B Non-AD BCC) [address] [place] [address] Andrews [facility])(War rior Op Med Cln Tm A Ad) OUTPATIENT [id number] Virtual - back pain and lab review [id number] AUGUSTCATHERINE 12/10 Released w/o Limitations [address] [place] [address] Andrews [facility])(W arrior Op Med Cln Tm A Ad) [address] [place] [address] Andrews [facility])(War rior Op Med Cln Tm A Ad) TELE CONSULT [id number] Notes Entered by: JEM COYNE 18 Dec 2019 1436 ------- ------- ------- ------- -- discuss lab AUGUSTOCTAVIOLit Cadena 12/[address] [place] [address])(W arrior Op Med Cln Tm A Ad) [address] [place] [address])(Fam conor Med Tm B Non-AD BCC) TELE CONSULT [id number] 3 Notes Entered by: Rivera LOZANO 25 Dec 2019 1248 ------- ------- ------- ------- -- Network results PT 12/24/19 20 TSB AUGUSTOCTAVIOLit Cadena 12/[address] [place] [address])(F amily Med Tm B Non-AD BCC) [address] [place] [address])(Fam conor Med Tm B Non-AD BCC) TELE CONSULT [id number] 8 Notes Entered by: Rivera LOZANO 30 Dec 2019 0939 ------- ------- ------- ------- -- Network results PT 0 RINA SHAH 12/[address] [place] [address] Andrews [facility])(F amily Med Tm B Non-AD BCC) [address] [place] [address])(Fam conor Med Tm B Non-AD BCC) TELE CONSULT [id number] 0 Notes Entered by: Rivera LOZANO 15 Feb 2020 1108 ------- ------- ------- ------- -- Network results PT 12/31/19- 01/28/20 RINA SHAH 02/[address] [place] [address])(F amily Med Tm B Non-AD BCC) [address] [place] [address])(Fam conor Med Tm B Non-AD BCC) TELE CONSULT [id number] 7 Notes Entered by: OG MILLER 14 Mar 2020 1011 ------- ------- ------- ------- -- Lab Order Request / Otis / - sgj GABRIELA GARCIA 03/14 Released to [facility] [address] [place] [address])(F amily Med Tm B Non-AD BCC) [address] [place] [address])(Fam conor Med Tm B Non-AD BCC) TELE CONSULT [id number] Notes Entered by: RINA JO 07 Apr 2020 1326 ------- ------- ------- ------- -- lab results RINA JO 04/[address] [place] [address])(F amily Med Tm B Non-AD BCC) [address] [place] [address])(Fam conor Med Tm B Non-AD BCC) TELE CONSULT [id number] 6 Notes Entered by: MICHELLE ALEGRE 08 Apr 2020 1322 ------- ------- ------- ------- -- B12 Consult /Otis / PRETTY LAUREANO 04/08 Other Not Elsewhere Classified [address] [place] [address])(F amily Med Tm B Non-AD BCC) [address] [place] [address])(Fam conor Med Tm B Non-AD BCC) TELE CONSULT [id number] 9 Notes Entered by: STEFFANY SAM 04 May 2020 0933 ------- ------- ------- ------- -- Rx reftommy Mendieta/ CALLY JOHANSEN 05/04 Medication Refill Forwarded [address] [place] [address])(F amily Med Tm B Non-AD BCC) [address] [place] [address])(Fam conor Med Tm B Non-AD BCC) TELE CONSULT [id number] 0 Notes Entered by: JOSSY MEEKS 09 May 2020 1515 ------- ------- ------- ------- -- referra l renewal /otis /[phone] PRETTY Heard 05/09 Other Not Elsewhere Classified [address] [place] [address] Andrews [facility])(F amily Med Tm B Non-AD BCC) [address] [place] [address] Andrews [facility])(Fam conor Med Tm B Non-AD BCC) TELE CONSULT [id number] 0 Notes Entered by: RINA JO 08 Jun 2020 1456 ------- ------- ------- ------- -- lab results MU FALCON 06/08 Other Not Elsewhere Classified [address] [place] [address] Andrews [facility])(F amily Med Tm B Non-AD BCC) [address] [place] [address] Andrews [facility])(Fam conor Med Tm B Non-AD BCC) TELE CONSULT [id number] 9 Notes Entered by: STEFFANY SAM 23 Aug 2020 1147 ------- ------- ------- ------- -- Retro Referra l Request / Otis/ [phone] PRETTY LAUREANO 08/23 Other Not Elsewhere Classified [address] [place] [address] Andrews [facility])(F amily Med Tm B Non-AD BCC) [address] [place] [address] Andrews [facility])(Fam conor Med Tm B Non-AD BCC) TELE CONSULT [id number] Notes Entered by: YVON HEATH RET 27 Oct 2020 1409 ------- ------- ------- ------- -- Appt Req for Well Check RX Renewal /Otis /* LEOISE Bermudez 10/27 Referred for Appointment [address] [place] [address] Andrews [facility])(F amily Med Tm B Non-AD BCC) [address] [place] [address] Andrews [facility])(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G ynecolo gy) [address] [place] [address] Andrews [facility])(Fam conor Med Tm B Non-AD BCC) OUTPATIENT [id number] 1 F2F: well-vi RINA Avelar 12/29 Released w/o Limitations [address] [place] [address] Andrews B 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 [id number] 7 Notes Entered by: ERIKA SMITH 18 Jan 2021 1440 ------- ------- ------- ------- -- VANCE MENDIOLA 01/[address] [place] [address] Andrews WEN ([facility])(G ynecolo gy) [address] [place] [address] Andrews WEN ([facility])(Fam conor Med Tm B Non-AD BCC) TELE CONSULT [id number] Notes Entered by: STEFFANY SAM 21 Mar 2021 0823 ------- ------- ------- ------- -- RX Refill/ Otis/ HUMERA OVIEDO 03/21 Other Not Elsewhere Classified [address] [place] [address] Andrews WEN ([facility])(F amily Med Tm B Non-AD BCC) [address] [place] [address] Andrews [facility] ([facility])(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 [id number] 5 Notes Entered by: Pool OJDEA 27 Mar 2021 1234 ------- ------- ------- ------- -- Network results Physica l Therapy 021 VANCE MOE 03/[address] [place] [address] Andrews [facility] ([facility])(G ynecolo gy) [address] [place] [address] Andrews WENB ([facility])(Fam conor Med Tm B Non-AD BCC) TELE CONSULT [id number] 7 Notes Entered by: AMBER ARGUELLES 02 May 2021 0720 ------- ------- ------- ------- -- Orthope dic Referra alfredo BREWSTER F/U/-SX - R Ben Jo/ [facility] GABRIELA GARCIA 05/02 Immediate Referral [address] [place] [address])(F amily Med Tm B Non-AD BCC) [address] [place] [address])(Fam conor Med Tm B Non-AD BCC) TELE CONSULT [id number] 9 Notes Entered by: LULI HAMILTON 18 May 2021 142 ------- ------- ------- ------- -- Network Results Orthope dics 022 RINA AMES 05/[address] [place] [address])(F amily Med Tm B Non-AD BCC) [address] [place] [address])(Fam conor Med Tm B Non-AD BCC) TELE CONSULT [id number] 5 Notes Entered by: JOSSY MEEKS 24 May 2021 0942 ------- ------- ------- ------- -- referra alfredo marinelli /otis /[phone] GABRIELA Harris 05/24 Immediate Referral [address] [place] [address])(F amily Med Tm B Non-AD BCC) [address] [place] [address])(Fam conor Med Tm B Non-AD BCC) TELE CONSULT [id number] 2 Notes Entered by: Lit CARPIO 16 Jun [id number] ------- ------- ------- ------- -- Network results Orthope dics 022 RINA GONZALEZ 06/[address] [place] [address])(F amily Med Tm B Non-AD BCC) [address] [place] [address])(Fam conor Med Tm B Non-AD BCC) TELE CONSULT [id number] 1 Notes Entered by: STEFFANY SAM 20 Jun 2021 0814 ------- ------- ------- ------- -- Phone Call Request / Otis/ JOSE GABRIELA A 06/20 Released to [facility] [address] [place] [address])(F amily Med Tm B Non-AD BCC) [address] [place] [address])(Fam conor Med Tm B Non-AD BCC) TELE CONSULT [id number] 2 Notes Entered by: GILLIAN AGUILAR 21 Jun 2021 0904 ------- ------- ------- ------- -- STAT Referra l Request (appt May)/Josh jama/61 [phone] (Renetta from [facility]) ELOISE HERNANDEZ 06/21 Immediate Referral [address] [place] [address])(F amily Med Tm B Non-AD BCC) [address] [place] [address])([facility] conor Med Tm B Non-AD BCC) TELE CONSULT [id number] 7 Notes Entered by: LULI HAMILTON 27 Jul 2021 1311 ------- ------- ------- ------- -- Network Results Orthope darvin 022 RINA AMES 07/[address] [place] [address] [facility])(F amily Med Tm B Non-AD BCC) [address] [place] [address])(Fam conor Med Tm B Non-AD BCC) TELE CONSULT [id number] 4 Notes Entered by: DOT DUNN 15 Aug 2021 1040 ------- ------- ------- ------- -- Please review provide r results /NICOLE/ RINA MATTHEWS 08/[address] [place] [address])(F amily Med Tm B Non-AD BCC) [address] [place] [address])(Fam conor Med Tm B Non-AD BCC) TELE CONSULT [id number] 6 Notes Entered by: LOIDA SARABIA 25 Aug 2021 0910 ------- ------- ------- ------- -- Lopez garcias - Otis - - tsg GABRIELA GARCIA 08/25 Other Not Elsewhere Classified [address] [place] [address])(F amily Med Tm B Non-AD BCC) [address] [place] [address] [facility])(Fam conor Med Tm B Non-AD BCC) OUTPATIENT [id number] 1 bel Dietrich arm/raza linton,[phone] f2f appt KAYLA BRADLEY 09/28 Released w/o Limitations [address] [place] [address])(F amily Med Tm B Non-AD BCC) [address] [place] [address])(Fam conor Med Tm B Non-AD BCC) TELE CONSULT [id number] 7 Notes Entered by: AMBER ARGUELLES 22 Nov 2021 0832 ------- ------- ------- ------- -- Med Renewal Request / Otis/ [phone] GABRIELA GARCIA 11/22 Medication Refill Forwarded [address] [place] [address])(F amily Med Tm B Non-AD BCC) [address] [place] [address])(Fam conor Med Tm B Non-AD BCC) TELE CONSULT [id number] 6 Notes Entered by: STEFFANY SAM 20 Dec 2021 1002 ------- ------- ------- ------- -- RX request / Nany / GABRIELA GARCAI 12/20 Referred for Appointment [address] [place] [address])(F amily Med Tm B Non-AD BCC) [address] [place] [address])(Fam conor Med Tm B Non-AD BCC) OUTPATIENT [id number] 4 F2F/c/o vertigo CANDELARIO WORKMAN 01/02 Released w/o Limitations [address] [place] [address])(F amily Med Tm B Non-AD BCC) [address] [place] [address])(Fam conor Med Tm B Non-AD BCC) TELE CONSULT [id number] 7 Notes Entered by: CANDELARIO WORKMAN 03 Jan 2022 1649 ------- ------- ------- ------- -- Lab Review. Discuss vitamin supp. CANDELARIO WORKMAN 01/[address] [place] [address])(F amily Med Tm B Non-AD BCC) [address] [place] [address])(Fam conor Med Tm B Non-AD BCC) OUTPATIENT [id number] 9 Notes Entered by: CANDELARIO WORKMAN 05 Jan 2022 0931 ------- ------- ------- ------- -- B12 Injecti on CANDELARIO WORKMAN 01/05 Released w/o Limitations [address] [place] [address])(F amily Med Tm B Non-AD BCC) [address] [place] [address])(Fam conor Med Tm B Non-AD BCC) TELE CONSULT [id number] 8 Notes Entered by: Pool OJEDA 19 Feb 2022 133 ------- ------- ------- ------- -- Network results PHYSICA L THERAPY 022 LASHONDA GLASS 02/[address] [place] [address])(F amily Med Tm B Non-AD BCC) [address] [place] [address])(War rior Op Med Cln Tm A Ad) TELE CONSULT [id number] 1 Notes Entered by: [place] LING 27 Mar 2022 0959 ------- ------- ------- ------- -- Network results Physica l Therapy 022 CANDELARIO ISIDRO 03/[address] [place] [address] Group [facility])(W arrior Op Med Cln Tm A Ad) [address] [place] [address] [facility])(Fam conor Med Tm B Non-AD BCC) TELE CONSULT [id number] 5 Notes Entered by: AMBER ARGUELLES 02 Apr 2022 0919 ------- ------- ------- ------- -- Med Renewal Request / Mirna / GARBIELA GARCIA 04/02 Medication Refill Forwarded [address] [place] [address] [facility])(F amily Med Tm B Non-AD BCC) [address] [place] [address])(Fam conor Med Tm B Non-AD BCC) TELE CONSULT [id number] 7 Notes Entered by: JODIE KHAN 03 Jul 2022 1354 ------- ------- ------- ------- -- Multipl e Request / MIRNA / DEAN CAIN 07/03 Referred for Appointment [address] [place] [address] [facility])(F amily Med Tm B Non-AD BCC) [address] [place] [address] [facility])(Fam conor Med Tm B Non-AD BCC) OUTPATIENT [id number] 1 NECK PAIN KAYLA BRADLEY 07/13 Released w/o Limitations [address] [place] [address] [facility])(F amily Med Tm B Non-AD BCC) [address] [place] [address] [facility])(Fam conor Med Tm B Non-AD BCC) TELE CONSULT [id number] 6 Notes Entered by: Tao RUBIO 03 Aug 2022 1425 ------- ------- ------- ------- -- Network Results - Gastroe KAYLA Porter 08/[address] [place] [address])(F amily Med Tm B Non-AD BCC) [address] [place] [address] [facility])(Fam conor Med Tm B Non-AD BCC) TELE CONSULT [id number] 5 Notes Entered by: Tao RUBIOKYRIE Lit 26 Sep 2022 0847 ------- ------- ------- ------- -- Network Results - [facility] KAYLA BRADLEY Lit 09/26 [employer] [facility] RODRIGUEZ ([facility])(F amily Med B Non-AD BCC) 5C-375 th [facility] [id number] Pain in left knee HALINA ROSEHALL 06/25 Discharge Disposition: Home or Self Care 5C-[address] [facility] [id number]-[id number] Outpatient [id number] HALINA ROSEHALL 07/03 Discharge Disposition: Home or Self Care 5A-3 [facility] 0055C-375 th [facility] Visit [id number] 07/06 Discharge Disposition: Home or Self Care 5C-3 [facility] 0055C-375 th [facility] Visit [id number] 07/10 Discharge Disposition: Home or Self Care 5C-3 [facility] 0055C-375 th [facility] Clinic [id number] Person consult ing for explana tion of examina tion or test finding s HALINA ROSEHALL 07/27 Discharge Disposition: Home or Self Care 5C-3 [facility] Procedures Combined list of: 1) Procedures from Department of Veterans Affairs facilities going back up to thelast 18 months, not all VA non-surgical procedures are included; 2) All procedures from the Department of Defense facilities. Procedure Procedure Type Code Date Perfomer Comments Dereje e Colonoscopy Colonoscopy (procedure) [id number] 2023 Attending MD: Darling Parham Recommendation: - Await pathology results. - Repeat colonoscopy in 2 years for surveillance. - Continue present medications. [facility] alex Biopsy of breast Biopsy of breast (procedure) [id number] 1988- [facility] Thyroidectomy, removal of all remaining thyroid ti ue following previous removal of a portion of thyroid Thyroidectomy, removal of all remaining thyroid tissue following previous removal of a portion of thyroid [id number] [facility]th [facility] Non-Physician Phone Call To Patient/Provider Brief (5-10min) Non-Physician Phone Call To Patient/Provide r Brief (5-10min) [id number] 2018 PRETTY LAUREANO [facility] Disease management program, follow-up/linda e ment 2017 TEO VINSON [facility] Screening papanicolaou smear; obtaining, preparing and conveyance of cervical or vaginal smear to laboratory 2017 CHARANJIT FAIR [facility] Disease management program, follow-up/linda e ment 2017 TEO VINSON [facility] Non-Physician Phone Call To Patient/Provider Brief (5-10min) Non-Physician Phone Call To Patient/Provide r Brief (5-10min) [id number] 2016 CHRISTIANO MONCADA Non-Physician Phone Call To Patient/Provider Brief (5-10min) Non-Physician Phone Call To Patient/Provide r Brief (5-10min) [id number] 2016 BAYRON CHAMBERS [facility] Non-Physician Phone Call To Patient/Provider Brief (5-10min) Non-Physician Phone Call To Patient/Provide r Brief (5-10min) [id number] Supervised Injection Intramuscular Supervised Injection Intramuscular [id number] 2014 RANDY PATEL Cyanocobalamin injection 1000micrograms/mi lliliters given in right gluteus kimi Lot number: [id number] Expiration date: 10/12 [facility] [address] Patient was instructed to wait in the clinic 15 minutes after injection. Patient was instructed to notify staff if any itching at injection site, allergic reaction or other symptoms. [facility] Non-Physician Phone Call To Patient/Provider Brief (5-10min) Non-Physician Phone Call To Patient/Provide r Brief (5-10min) [id number] 2014 [place] GAUTHIER [facility] Non-Physician Phone Call To Patient/Provider Brief (5-10min) Non-Physician Phone Call To Patient/Provide r Brief (5-10min) [id number] 2013 KULWANT BANKS [facility] Non-Physician Phone Call To Pt/Provider Intermed (11-20 min) Non-Physician Phone Call To Pt/Provider Intermed (11-20 min) [id number] 2013 BIANCA HERMAN [facility] Screening papanicolaou smear; obtaining, preparing and conveyance of cervical or vaginal smear to laboratory 2012 ABEBA VAZQUEZ [facility] Non-Physician Phone Call To Patient/Provider Brief (5-10min) Non-Physician Phone Call To Patient/Provide r Brief (5-10min) [id number] 2012 LASHONDA HOLLINGSWORTH [facility] Colonoscopy For Forceps Biopsy 2011 NOMI BERNARD [facility] Non-Physician Phone Call To Pt/Provider Intermed (11-20 min) Non-Physician Phone Call To Pt/Provider Intermed (11-20 min) [id number] 2011 CELESTINE LEAL [facility] Non-Physician Phone Call To Patient/Provider Brief (5-10min) Non-Physician Phone Call To Patient/Provide r Brief (5-10min) [id number] 2010 OBI GARDNER [facility] Non-Physician Phone Call To Pt/Provider Intermed (11-20 min) Non-Physician Phone Call To Pt/Provider Intermed (11-20 min) [id number] 2010 CELESTINE LEAL [facility] Screening papanicolaou smear; obtaining, preparing and conveyance of cervical or vaginal smear to laboratory 2009 GABRIELLE ALLEN [facility] Screening papanicolaou smear; obtaining, preparing and conveyance of cervical or vaginal smear to laboratory 2007 EMRE MEADOWS Non-Physician Phone Call To Patient/Provider Brief (5-10min) Non-Physician Phone Call To Patient/Provide r Brief (5-10min) [id number] 2007 DIANA ORTIZ [facility] Screening papanicolaou smear; obtaining, preparing and conveyance of cervical or vaginal smear to laboratory 2006 EMRE MEADOWS Colposcopy With Biopsy Colposcopy With Biopsy [id number] 2005 PUMA DEL CID [facility] Screening papanicolaou smear; obtaining, preparing and conveyance of cervical or vaginal smear to laboratory 2005 RANDY PEDERSEN [facility] Non-Physician Phone Call To Patient/Provider Brief (5-10min) Non-Physician Phone Call To Patient/Provide r Brief (5-10min) [id number] PRETTY LAUREANO [facility] Disease management program, follow-up/linda e ment AUGUST, CATHERINE R [facility] Waiver services; not otherwise specified (NOS) August,A [facility] Non-Physician Phone Call To Pt/Provider Intermed (11-20 min) Non-Physician Phone Call To Pt/Provider Intermed (11-20 min) [id number] CALLY JOHANSEN [facility] Ear Exam Andrew Maneuver Ear Exam Andrew Mane[facility]ver [id number] Supervised Injection Intramuscular Supervised Injection Intramuscular 65622 CANDELARIO WORKMAN Cyanocobalamin injection 1000micrograms/mi lliliters given in Left bicep. Lot number: [id number] Expiration date: Jun 2022 Hook Up: [facility], [place] [address] Patient was instructed to wait in the clinic 15 minutes after injection. Patient was instructed to notify staff if any itching at injection site, allergic reaction or other symptoms. DoD TELE ASSESS & MGT SRV PROV QUAL NONPHYS HLTH CARE PRO TO EST PAT,PARENT,GUARD NOT ORIG REL ASSESS & MGT SRV PROV W/IN PREV 7 DAYS NOR LEAD ASSESS & MGT SRV/PX W/IN NXT 24H/SOON APT; 11-20 MIN MED DIS 2022 [facility] THERAPEUTIC, PROPHYLACTIC, OR DIAGNOSTIC INJECTION (SPECIFY SUBSTANCE OR DRUG); SUBCUTANEOUS OR INTRAMUSCULAR 2021 DoD TELE ASSESS & MGT SRV PROV QUAL NONPHYS HLTH CARE PRO TO EST PAT,PARENT,GUARD NOT ORIG REL ASSESS & MGT SRV PROV W/IN PREV 7 DAYS NOR LEAD ASSESS & MGT SRV/PX W/IN NXT 24 HR/SOON APT;5-10 MIN MED DIS 2021 DoD TELE ASSESS & MGT SRV PROV QUAL NONPHYS HLTH CARE PRO TO EST PAT,PARENT,GUARD NOT ORIG REL ASSESS & MGT SRV PROV W/IN PREV 7 DAYS NOR LEAD ASSESS & MGT SRV/PX W/IN NXT 24 HR/SOON APT;5-10 MIN MED DIS 2021 DoD SELF-CARE EDUCATION PROVIDED TO PATIENT (HF) 2021 DoD TELE ASSESS & MGT SRV PROV QUAL NONPHYS HLTH CARE PRO TO EST PAT,PARENT,GUARD NOT ORIG REL ASSESS & MGT SRV PROV W/IN PREV 7 DAYS NOR LEAD ASSESS & MGT SRV/PX W/IN NXT 24H/SOON APT; 11-20 MIN MED DIS 2021 DoD TELE ASSESS & MGT SRV PROV QUAL NONPHYS HLTH CARE PRO TO EST PAT,PARENT,GUARD NOT ORIG REL ASSESS & MGT SRV PROV W/IN PREV 7 DAYS NOR LEAD ASSESS & MGT SRV/PX W/IN NXT 24 HR/SOON APT;5-10 MIN MED DIS 2021 DoD TELE ASSESS & MGT SRV PROV QUAL NONPHYS HLTH CARE PRO TO EST PAT,PARENT,GUARD NOT ORIG REL ASSESS & MGT SRV PROV W/IN PREV 7 DAYS NOR LEAD ASSESS & MGT SRV/PX W/IN NXT 24 HR/SOON APT;5-10 MIN MED DIS 2021 DoD TELE ASSESS & MGT SRV PROV QUAL NONPHYS HLTH CARE PRO TO EST PAT,PARENT,GUARD NOT ORIG REL ASSESS & MGT SRV PROV W/IN PREV 7 DAYS NOR LEAD ASSESS & MGT SRV/PX W/IN NXT 24 HR/SOON APT;5-10 MIN MED DIS 2021 DoD TELE ASSESS & MGT SRV PROV QUAL NONPHYS HLTH CARE PRO TO EST PAT,PARENT,GUARD NOT ORIG REL ASSESS & MGT SRV PROV W/IN PREV 7 DAYS NOR LEAD ASSESS & MGT SRV/PX W/IN NXT 24H/SOON APT; 11-20 MIN MED DIS 2021 DoD TELE ASSESS & MGT SRV PROV QUAL NONPHYS HLTH CARE PRO TO EST PAT,PARENT,GUARD NOT ORIG REL ASSESS & MGT SRV PROV W/IN PREV 7 DAYS NOR LEAD ASSESS & MGT SRV/PX W/IN NXT 24 HR/SOON APT;5-10 MIN MED DIS 2020 DoD TELE ASSESS & MGT SRV PROV QUAL NONPHYS HLTH CARE PRO TO EST PAT,PARENT,GUARD NOT ORIG REL ASSESS & MGT SRV PROV W/IN PREV 7 DAYS NOR LEAD ASSESS & MGT SRV/PX W/IN NXT 24 HR/SOON APT;5-10 MIN MED DIS 2020 DoD TELE ASSESS & MGT SRV PROV QUAL NONPHYS HLTH CARE PRO TO EST PAT,PARENT,GUARD NOT ORIG REL ASSESS & MGT SRV PROV W/IN PREV 7 DAYS NOR LEAD ASSESS & MGT SRV/PX W/IN NXT 24 HR/SOON APT;5-10 MIN MED DIS 2020 DoD TELE ASSESS & MGT SRV PROV QUAL NONPHYS HLTH CARE PRO TO EST PAT,PARENT,GUARD NOT ORIG REL ASSESS & MGT SRV PROV W/IN PREV 7 DAYS NOR LEAD ASSESS & MGT SRV/PX W/IN NXT 24H/SOON APT; 11-20 MIN MED DIS 2020 DoD TELE ASSESS & MGT SRV PROV QUAL NONPHYS HLTH CARE PRO TO EST PAT,PARENT,GUARD NOT ORIG REL ASSESS & MGT SRV PROV W/IN PREV 7 DAYS NOR LEAD ASSESS & MGT SRV/PX W/IN NXT 24 HR/SOON APT;5-10 MIN MED DIS 2019 DoD TELE ASSESS & MGT SRV PROV QUAL NONPHYS HLTH CARE PRO TO EST PAT,PARENT,GUARD NOT ORIG REL ASSESS & MGT SRV PROV W/IN PREV 7 DAYS NOR LEAD ASSESS & MGT SRV/PX W/IN NXT 24 HR/SOON APT;5-10 MIN MED DIS 2019 DoD WAIVER SERVICES; NOT OTHERWISE SPECIFIED (NOS) 2019 DoD TELE ASSESS & MGT SRV PROV QUAL NONPHYS HLTH CARE PRO TO EST PAT,PARENT,GUARD NOT ORIG REL ASSESS & MGT SRV PROV W/IN PREV 7 DAYS NOR LEAD ASSESS & MGT SRV/PX W/IN NXT 24 HR/SOON APT;5-10 MIN MED DIS 2019 DoD DISEASE MANAGEMENT PROGRAM, FOLLOW-UP/REASSESS MENT 2018 DoD TELE ASSESS & MGT SRV PROV QUAL NONPHYS HLTH CARE PRO TO EST PAT,PARENT,GUARD NOT ORIG REL ASSESS & MGT SRV PROV W/IN PREV 7 DAYS NOR LEAD ASSESS & MGT SRV/PX W/IN NXT 24 HR/SOON APT;5-10 MIN MED DIS 2018 DoD TELE ASSESS & MGT SRV PROV QUAL NONPHYS HLTH CARE PRO TO EST PAT,PARENT,GUARD NOT ORIG REL ASSESS & MGT SRV PROV W/IN PREV 7 DAYS NOR LEAD ASSESS & MGT SRV/PX W/IN NXT 24 HR/SOON APT;5-10 MIN MED DIS 2018 [facility] DISEASE MANAGEMENT PROGRAM, FOLLOW-UP/REASSESS MENT 2017 [facility] SCREENING PAPANICOLAOU SMEAR; OBTAINING, PREPARING AND CONVEYANCE OF CERVICAL OR VAGINAL SMEAR TO LABORATORY 2017 [facility] DISEASE MANAGEMENT PROGRAM, FOLLOW-UP/REASSESS MENT 2017 DoD TELE ASSESS & MGT SRV PROV QUAL NONPHYS HLTH CARE PRO TO EST PAT,PARENT,GUARD NOT ORIG REL ASSESS & MGT SRV PROV W/IN PREV 7 DAYS NOR LEAD ASSESS & MGT SRV/PX W/IN NXT 24 HR/SOON APT;5-10 MIN MED DIS 2016 DoD TELE ASSESS & MGT SRV PROV QUAL NONPHYS HLTH CARE PRO TO EST PAT,PARENT,GUARD NOT ORIG REL ASSESS & MGT SRV PROV W/IN PREV 7 DAYS NOR LEAD ASSESS & MGT SRV/PX W/IN NXT 24 HR/SOON APT;5-10 MIN MED DIS 2016 DoD TELE ASSESS & MGT SRV PROV QUAL NONPHYS HLTH CARE PRO TO EST PAT,PARENT,GUARD NOT ORIG REL ASSESS & MGT SRV PROV W/IN PREV 7 DAYS NOR LEAD ASSESS & MGT SRV/PX W/IN NXT 24 HR/SOON APT;5-10 MIN MED DIS 2015 DoD THERAPEUTIC, PROPHYLACTIC, OR DIAGNOSTIC INJECTION (SPECIFY SUBSTANCE OR DRUG); SUBCUTANEOUS OR INTRAMUSCULAR 2014 DoD TELE ASSESS & MGT SRV PROV QUAL NONPHYS HLTH CARE PRO TO EST PAT,PARENT,GUARD NOT ORIG REL ASSESS & MGT SRV PROV W/IN PREV 7 DAYS NOR LEAD ASSESS & MGT SRV/PX W/IN NXT 24 HR/SOON APT;5-10 MIN MED DIS 2014 DoD TELE ASSESS & MGT SRV PROV QUAL NONPHYS HLTH CARE PRO TO EST PAT,PARENT,GUARD NOT ORIG REL ASSESS & MGT SRV PROV W/IN PREV 7 DAYS NOR LEAD ASSESS & MGT SRV/PX W/IN NXT 24 HR/SOON APT;5-10 MIN MED DIS 2013 DoD TELE ASSESS & MGT SRV PROV QUAL NONPHYS HLTH CARE PRO TO EST PAT,PARENT,GUARD NOT ORIG REL ASSESS & MGT SRV PROV W/IN PREV 7 DAYS NOR LEAD ASSESS & MGT SRV/PX W/IN NXT 24H/SOON APT; 11-20 MIN MED DIS 2013 DoD SCREENING PAPANICOLAOU SMEAR; OBTAINING, PREPARING AND CONVEYANCE OF CERVICAL OR VAGINAL SMEAR TO LABORATORY 2012 DoD TELE ASSESS & MGT SRV PROV QUAL NONPHYS HLTH CARE PRO TO EST PAT,PARENT,GUARD NOT ORIG REL ASSESS & MGT SRV PROV W/IN PREV 7 DAYS NOR LEAD ASSESS & MGT SRV/PX W/IN NXT 24 HR/SOON APT;5-10 MIN MED DIS 2012 DoD COLONOSCOPY, FLEXIBLE; WITH BIOPSY, SINGLE OR MULTIPLE 2011 DoD TELE ASSESS & MGT SRV PROV QUAL NONPHYS HLTH CARE PRO TO EST PAT,PARENT,GUARD NOT ORIG REL ASSESS & MGT SRV PROV W/IN PREV 7 DAYS NOR LEAD ASSESS & MGT SRV/PX W/IN NXT 24H/SOON APT; 11-20 MIN MED DIS 2011 DoD TELE ASSESS & MGT SRV PROV QUAL NONPHYS HLTH CARE PRO TO EST PAT,PARENT,GUARD NOT ORIG REL ASSESS & MGT SRV PROV W/IN PREV 7 DAYS NOR LEAD ASSESS & MGT SRV/PX W/IN NXT 24 HR/SOON APT;5-10 MIN MED DIS 2010 DoD TELE ASSESS & MGT SRV PROV QUAL NONPHYS HLTH CARE PRO TO EST PAT,PARENT,GUARD NOT ORIG REL ASSESS & MGT SRV PROV W/IN PREV 7 DAYS NOR LEAD ASSESS & MGT SRV/PX W/IN NXT 24H/SOON APT; 11-20 MIN MED DIS 2010 DoD SCREENING PAPANICOLAOU SMEAR; OBTAINING, PREPARING AND CONVEYANCE OF CERVICAL OR VAGINAL SMEAR TO LABORATORY 2009 DoD SCREENING PAPANICOLAOU SMEAR; OBTAINING, PREPARING AND CONVEYANCE OF CERVICAL OR VAGINAL SMEAR TO LABORATORY 2007 DoD SCREENING PAPANICOLAOU SMEAR; OBTAINING, PREPARING AND CONVEYANCE OF CERVICAL OR VAGINAL SMEAR TO LABORATORY 2006 DoD TETANUS IMMUNE GLOBULIN (TIG), HUMAN, FOR INTRAMUSCULAR USE 2006 [facility] COLPOSCOPY OF THE CERVIX INCLUDING UPPER/ADJACENT VAGINA; WITH BIOPSY(S) OF THE CERVIX AND ENDOCERVICAL CURETTAGE 2005 [facility] SCREENING PAPANICOLAOU SMEAR; OBTAINING, PREPARING AND CONVEYANCE OF CERVICAL OR VAGINAL SMEAR TO LABORATORY 2005 [facility] SCREENING PAPANICOLAOU SMEAR; OBTAINING, PREPARING AND CONVEYANCE OF CERVICAL OR VAGINAL SMEAR TO LABORATORY 2004 [facility] REMOVAL OF FOREIGN BODY, EXTERNAL EYE; CORNEAL, WITH SLIT LAMP 2003 [facility] REPLACEMENT OF CONTACT LENS 2003 [facility] SCREENING PAPANICOLAOU SMEAR; OBTAINING, PREPARING AND CONVEYANCE OF CERVICAL OR VAGINAL SMEAR TO LABORATORY 2003 [facility] OPHTHALMOLOGICAL SERVICES: MEDICAL EXAMINATION AND EVALUATION, WITH INITIATION OR CONTINUATION OF DIAGNOSTIC AND TREATMENT PROGRAM; INTERMEDIATE, ESTABLISHED PATIENT 2002 [facility] DETERMINATION OF REFRACTIVE STATE 2001 [facility] Social History Combined list of available smoking, tobacco, and other social history from 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 Social History Type Response Date Comment Sourc e Sex Representation Female (finding) 06/20/2022 Unknown Organization Tobacco Never-cigarette user Cigarette use:. Never-other tobacco user (not cigarettes) Other Tobacco use:. Ambulatory Pharmacy Sexual Orientation Ambula tory Pharmacy Gender identity Ambulator y Pharmacy This section is an empty social history section. [facility] Assessment and Plan Combined list of future care activities from Department of Defense and Veterans Affairs facilities (e.g., assessment and plan notes, appointments, orders, and referrals). Additional future care activities may be listed in the Plan of Care section. Result Assessment and Plan Date Source Assessment and Plan Extracted from:Title : 0055 [facility] virtual MRI results Author: HALINA PAERSON NP, Family Medicine Date: 07/27/24 1. T est result to patient by telephone Presents to discuss MRI results. Results reviewed. Further workup to be completed by new PCM. 10 minutes total time spent on evaluation and management. Halina Pearson R., Zeus, [employer] [place] [address] Extracted from:Title: 0055 [facility] left knee pain Author: HALINA PEARSON NP, Family Medicine Date: 06/25/24 1. L eft knee pain Chronic. N ot improving. She has been seen f or this pain in November, X R ( mod O A seen). PT r eferral placed at t hat time h owever s he s tates that the location was too f ar s o it wasn't u tilized. At p resent, she reports c onstant knee p ain. P ain is l ocated t o anterior k nee. She states f eelings of instability a nd radiating pain down left l eg. D ifficulty with knee f lexion. Endorses s welling. N eeds new physical therapy referral left knee pain, constant. No SUKHDEEP, no falls. PE remarkable for lateral knee swelling as well as significant pain experienced with varus and valgus stress. - will obtain MRI for further classification - topical diclofenac for pain relief (she does not want PO NSAID at this time) - referral to Physical Therapy for strengthening - Ortho referral for injection consideration - will call with results 20 minutes total time spent on evaluation and management. Halina Pearson R., Zeus, [employer] [place] [address] Ordered: diclofenac topical(diclofenac 1% topical gel), 4.5 in, Topical, QID, apply to left knee, # 100 g, 0 total refill(s), Maintenance, Pharmacy: [facility] [Not filled] MRI Knee w/o Contrast Left Referral Request 2.0 - [facility] Referral Request 2.0 - [facility] Extracted from:Title: Ambulatory Patient Education Author: WILLI ALEGRIA PA Date: 12/23/23 Orthopedics Osteoarthritis Osteoarthritis is a type of arthritis. It refers to joint pain or joint disease. Osteoarthritis affects tissue that covers the ends of bones in joints (cartilage). Cartilage acts as a cushion between the bones and helps them move smoothly. Osteoarthritis occurs when cartilage in the joints gets worn down. Osteoarthritis is sometimes called wear and tear arthritis. Osteoarthritis is the most common form of arthritis. It often occurs in older people. It is a condition that gets worse over time. The joints most often affected by this condition are in the fingers, toes, hips, knees, and spine, including the neck and lower back. What are the causes? This condition is caused by the wearing down of cartilage that covers the ends of bones. What increases the risk? The following factors may make you more likely to develop this condition: Being age 50 or older. Obesity. Overuse of joints. Past injury of a joint. Past surgery on a joint. Family history of osteoarthritis. What are the signs or symptoms? The main symptoms of this condition are pain, swelling, and stiffness in the joint. Other symptoms may include: An enlarged joint. More pain and further damage caused by small pieces of bone or cartilage that break off and float inside of the joint. Small deposits of bone (osteophytes) that grow on the edges of the joint. A grating or scraping feeling inside the joint when you move it. Popping or creaking sounds when you move. Difficulty walking or exercising. An inability to addiction counselor items, twist your hand, or control the movements of your hands and fingers. How is this diagnosed? This condition may be diagnosed based on: Your medical history. A physical exam. Your symptoms. X-rays of the affected joints. Blood tests to rule out other types of arthritis. How is this treated? There is no cure for this condition, but treatment can help control pain and improve joint function. Treatment may include a combination of therapies, such as: Pain relief techniques, such as: Applying heat and cold to the joint. Massage. A form of talk therapy called cognitive behavioral therapy (CBT). This therapy helps you set goals and follow up on the changes that you make. Medicines for pain and inflammation. The medicines can be taken by mouth or applied to the skin. They include: NSAIDs, such as ibuprofen. Prescription medicines. Strong anti-inflammatory medicines (corticosteroids). Certain nutritional supplements. A prescribed exercise program. You may work with a physical therapist. Assistive devices, such as a brace, wrap, splint, specialized glove, or cane. A weight control plan. Surgery, such as: An osteotomy. This is done to reposition the bones and relieve pain or to remove loose pieces of bone and cartilage. Joint replacement surgery. You may need this surgery if you have advanced osteoarthritis. Follow these instructions at home: Activity Rest your affected joints as told by your health care provider. Exercise as told by your provider. The provider may recommend specific types of exercise, such as: Strengthening exercises. These are done to strengthen the muscles that support joints affected by arthritis. Aerobic activities. These are exercises, such as brisk walking or water aerobics, that increase your heart rate. Hqitv-pv-zgijox activities. These help your joints move more easily. Balance and agility exercises. Managing pain, stiffness, and swelling If told, apply heat to the affected area as often as told by your provider. Use the heat source that your provider recommends, such as a moist heat pack or a heating pad. If you have a removable assistive device, remove it as told by your provider. Place a towel between your skin and the heat source. If your provider tells you to keep the assistive device on while you apply heat, place a towel between the assistive device and the heat source. Leave the heat on for 20 3 0 minutes. If told, put ice on the affected area. If you have a removable assistive device, remove it as told by your provider. Put ice in a plastic bag. Place a towel between your skin and the bag. If your provider tells you to keep the assistive device on during icing, place a towel between the assistive device and the bag. Leave the ice on for 20 minutes, 2 3 times a day. If your skin turns bright red, remove the ice or heat right away to prevent skin damage. The risk of damage is higher if you cannot feel pain, heat, or cold. Move your fingers or toes often to reduce stiffness and swelling. Raise (elevate) the affected area above the level of your heart while you are sitting or lying down. General instructions Take cvuu-kzr-khrigef and prescription medicines only as told by your provider. Maintain a healthy weight. Follow instructions from your provider for weight control. Do not use any products that contain nicotine or tobacco. These products include cigarettes, chewing tobacco, and vaping devices, such as e-cigarettes. If you need help quitting, ask your provider. Use assistive devices as told by your provider. Where to find more information [employer] [place] of Arthritis and Musculoskeletal and Skin Diseases: niams.nih.gov [employer] [place] on Aging: tameka.nih.gov [employer]: rheumatology.org Contact a health care provider if: You have redness, swelling, or a feeling of warmth in a joint that gets worse. You have a fever along with joint or muscle aches. You develop a rash. You have trouble doing your normal activities. You have pain that gets worse and is not relieved by pain medicine. This information is not intended to replace advice given to you by your health care provider. Make sure you discuss any questions you have with your health care provider. Document Revised: 12/13/2022 Document Reviewed: 12/13/2022 [employer] Patient Education 2023 [place]. Extracted from:Title: 0055 [facility] Virtual lab/image results Author: WILLI ALEGRIA PA Date: 12/23/23 1. K nee pain 63 Years-old F lele ledezma resenting v irtually f or l ab r esults. Verified name and . Discussed the following findings: FINDINGS: - Unremarkable labs - Unspecific C hondrocalcinosis/Osteoarthritis of the left knee most pronounced in the patellofemoral compartment where it is moderate in severity PLAN: - Pt to continue Naproxen as needed - Will refer to PT for further management - Follow up in clinic: 6 -8 weeks - F/u sooner if pain worsens or joint becomes hot/red - All questions answered. Patient verbalized understanding and expressed comfort with this plan. Ordered: Referral Request 2.0 - DoD Extracted from:Title: 0055 [facility] Annual Exam/Perscription renewal Author: WILLI ALEGRIA PA Date: 11/29/23 1. W ell adult monitoring check done 63 y /o f lele ponce for routine annual visit. Pt is well appearing on exam. Pts concerns were addressed below. - O rderedLabs -Discussed healthy diet (vegetable, fruits, lean meats) -Discussed intentional exercise (3-5x/week, 20-30 minutes of sustained cardiovascular training) -Virtual f/u in 2-3d for lab review General Prevention: 10yr ASCVD risk: n /a Colon Cancer Screening: u td 2 023; repeat in 2-3y Lung CA screening: n/a Flu Immunization: u td PCV Immunization: n /a Zoster Immunization: N o Mammogram: s cheduled Bone Density Scan: s cheduled PAP Exam: u td History of abnormal PAPs: n o HPV series completed: n /a Willi Alegria, 1Lt, [facility] [place] [address] Ordered: CBC w/ Diff Comprehensive Metabolic Panel Hemoglobin A1c Lipid Panel TSH w/ Reflex FT4 and Total T3 Vitamin B12 and Folate Panel Vitamin D 25 Hydroxy Level 2. D epression Pt been on Wellbutrin and trazodone for depression and occasional anxiety. Pt states she thinks it helps but sometimes can't tell. She denies SI/HI. -Pt can f/u if wanting to consider changing medication -refill Wellbutrin and trazodone Ordered: buPROPion(Wellbutrin XL 300 mg/24 hours oral tablet, extended release), 1 tab(s), Oral, Daily, # 90 tab(s), 3 total refill(s), Maintenance, 1 tab(s) Oral Daily, Pharmacy: [facility] [Not filled] 3. K nee edema patient states that for the past few months she has noticed her knee feeling swollen and having more pain with exercise. Patient states that there was no trauma,erythema/locking/instabil ity. On exam, bilateral knees had 5 out of 5 strength. Mild edema noted on left knee versus right. Patient has no tenderness to palpation of the left knee. Patient has full range of motion of bilateral knees. Possibly OA contributing to swelling/pain with prolonged movement. -Will order XR of L knee -Recommended avoiding aggravating activities -Discussed benefit of stretching/light exercise for strengthening -patient should elevate/ice knee when symptoms arise -Patient can take NSAIDs as needed for inflammation -Follow-up in 4-6 weeks if pain persists or worsens 4. S pasm of back muscles Chronic condition. Well controlled. No other concerns. -Will continue current medication regimen -f/u as needed Ordered: lidocaine topical(lidocaine 5% topical patch), 1 patch(es), Topical, Daily, Leave on for up to 12 hours within a 24 hour period (12 hours on, 12 hours off), # 30 patch(es), 3 total refill(s), Maintenance, 1 patch(es) Topical Daily,Instr:Leave on for up to 12 hours within a 24 hour period (12 hours... methocarbamol(Robaxin 500 mg oral tablet), 2 tab(s), Oral, QID, PRN muscle spasm, # 40 tab(s), 1 total refill(s), Acute, 2 tab(s) Oral QID,PRN:muscle spasm, Pharmacy: [facility] [Not filled] 5. 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 Well controlled. No other concerns. -Will continue current medication regimen -f/u as needed 6. O steopenia following menopause see above. Ordered: Referral Request 2.0 - [facility] Orders: levothyroxine(Synthroid 125 mcg oral tablet), 1 tab(s), Oral, every morning, # 90 tab(s), 3 total refill(s), Maintenance, 1 tab(s) Oral every morning, Pharmacy: [facility] [Not filled] traZODone(traZODone 50 mg oral tablet), 1 tab(s), Oral, every day at bedtime, Take 1 tab as needed, # 90 tab(s), 0 total refill(s), Maintenance, 1 tab(s) Oral every day at bedtime,Instr:Take 1 tab as needed, Pharmacy: [facility] [Not filled] *Differential Automated *Glomerular Filtration Rate, Estimated XR Knee Weight Bearing 3+ Left Extracted from:Title: 0055 [facility] Virtual Spasm of Back Muscles Author: KAYLA BRADLEY PA Date: 06/25/23 1. S pasm of back muscles 63 y/o F with a hx of back spasms presents c/o recent spasm and back pain and would like to get Robaxin again to help with the pain. -Medication refilled. -Use heat, stretching and foam rolling. -Recommend massage. -F/u as needed. 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 O ral lesion 63 y/o pt with white lesion on bottom lip, inner mucosa f or >1y. Lesion appears to be becoming more opaque and larger. Pt denies any pain. Pt states it feels like something on the surface. Pt denies any trauma to the area. 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 Pt does not smoke but does drink alcohol a few times a week. Pt denies increased fatigue, n/v, unintentional weight loss. On exam, white l esion at inner bottom lip that d oes not wipe off. No erythema noted around lesion. No TTP. -Pt has appointment set up with Dermatology next week where she discussed biopsy -f/u as needed 2. L esion of tongue Pt states a few years ago she experienced tongue bleeding. She states all she did was flick her tongue on her bottom teeth and her tongue perfuse bleeding. Bleeding lasted a few hours. Pt states is has not bled since but there is a erythematous lesion at the tip of her tongue that has not changed in appearance . Pt denies tenderness or pain. Pt states it feels like something on her tongue. Likely scar tissue from skin break. -Will keep eye on lesion -Pt states she will ask dermatology about lesion as well -f/u as needed Extracted from:Title: 0055 [facility] F/u Jellyfish Sting / Knee swelling Author: KAYLA BRADLEY PA Date: 01/30/23 1Maude Knapp ellyfish sting 63-year-old female with a history of a jellyfish sting on her medial proximal thighs bilaterally presents for follow-up. The wounds seem to be healing properly and the pain has significantly decreased since last week. Continue to apply Vaseline multiple times daily to help with wound healing. Continue to monitor for infections. Follow-up as needed. 2. S welling of knee joint Chronic, currently has a mild tenderness to palpation and when going upstairs. Denies any other symptoms at this time patient also denies any injuries to the area. On palpation the patient does have edema and crepitus on her knee. Advised patient to apply compression with Elias bandage and use ice at least twice a day for 10-15 minutes each time for the next 1-2 weeks to help improve the swelling. If the patient continues to have increased pain or s welling then f ollow-up f or further treatment. Extracted from:Title: 0055 [facility] Jellyfish Sting Author: KAYLA BRADLEY PA Date: 01/25/23 1. Ra ellyfish sting 63 y/o F presents c/o possible jellyfish sting on the medial aspect of the proximal legs Left > Right about 2 wks ago. Pt now has black colored scabs with largest around 5x1cm. Wound seems to be healing well. Pt is currently on Keflex. -Continue antibiotic until all gone. -Continue to wash gently daily with soap and water. -Use Bactrim for the next 3 days. -Take OTC Tylenol as needed for pain. -Placed consult for dermatology. -ER precautions given. -F/u in 1 wk. Ordered: Referral Request 2.0 Extracted from:Title: [facility] BOARD ATTENDANT Office Clinic Note Author: МАРИНА CELESTINESANIYA BROWN DO Date: 12/10/22 1. C ervical cancer screening done Pap smear completed today. Will f/u results and let patient know prn. TEENA Bradley is PCM--I let patient know that she does not necessarily need to see both of us annually, but a BOARD ATTENDANT can address concerns that may not be as commonly addressed by a PCM (such as her incontinence, below, or if there is dyspareunia, etc). Pap smear screening typically discontinued after age 65 unless certain risk factors. She states understanding. All questions asked/answered. 2. O steopenia following menopause Patient taking OTC caltrate, went ahead and placed rx. Recommended continue calcium and weight bearing exercise to benefit her bone health. F/U dexa next year. 3. M ixed incontinence I let patient know that if she is happy to continue using pads, that is perfectly fine. If she would like more information on treatment, also happy to share. She had some stress symptoms, so I let her know about pessaries as an option. Discussed they are non-surgical, removable, flexible option for stress symptoms. May not help with urgency symptoms--PFPT is best for that, though there are other therapies and medications t hrough UroGyn if she is interested in the future (such as bladder botox, neurostim, etc). She thanked me for the information. 4. D isorder of thyroid hormone Orders: calcium-vitamin D(Caltrate 600 + D oral tablet), 1 tab(s), Oral, BID, # 180 tab(s), 3 total refill(s), Maintenance, 1 tab(s) Oral BID, Pharmacy: [facility] Extracted from:Title: 0055 [facility] Annual Physical Exam / Skin mass / Varicose veins Author: KAYLA BRADLEY PA Date: 11/27/22 1. F ull examination performed Preventative Medicine / HCM visit with no emergent concerns. - Recommended yearly HCM visits - Colonoscopy: UTD - Annual lab results: UTD - Mammogram: Due. - PAP: UTD. - Discussed importance of healthy diet and exercise (3-5x/week, 20-30 minutes of sustained cardiovascular training) 2. M ass of skin 62 y/o F presents c/o right anterior shoulder mass for the past few years with minimal growth. The mass is mobile, well defined, rubbery feeling and non-tender. Suspect lipoma. -Will get superficial ultrasound. -F/u after imaging is completed. Ordered: US Superficial Extremity 3. V aricose veins 62 y/o F presents c/o posterior leg pain that has progressed to affect ADL to include sleeping. On exam pt has many caricosities on the lower extremities bilaterally. -Placed consult for vascular surgery. -F/u as needed. Ordered: Referral Request 2.0 4. B reast cancer screening not done Ordered: MG Mammo José Manuel Screening Bilateral 5. R epeated prescription Orders: buPROPion(buPROPion 300 mg/24 hours (XL) oral tablet, extended release), 1 tab(s), Oral, Daily, # 90 tab(s), 3 total refill(s), Acute, 1 tab(s) Oral Daily, Pharmacy: [facility] [Not filled] methocarbamol(Robaxin 500 mg oral tablet), 2 tab(s), Oral, QID, PRN muscle spasm, # 40 tab(s), 0 total refill(s), Acute, 2 tab(s) Oral QID,PRN:muscle spasm, Pharmacy: [facility] [Not filled] levothyroxine(Synthroid 125 mcg oral tablet), 1 tab(s), Oral, every morning, # 90 tab(s), 3 total refill(s), Maintenance, 1 tab(s) Oral every morning, Pharmacy: [facility] [Not filled] traZODone(traZODone 50 mg oral tablet), 1 tab(s), Oral, every day at bedtime, # 90 tab(s), 3 total refill(s), Acute, 11/28/2023, 1 tab(s) Oral every day at bedtime, Pharmacy: [facility] [Not filled] 12/09/2024 [id number] Functional Status Combined list of recent functional and cognitive assessments recorded at [employer] (VA).VA Functional [place] Measurement (FIM) Scale: 1 = Total Assistance (Subject = 0% +), 2 = Maximal Assistance (Subject = 25% +), 3 = Moderate Assistance (Subject = 50% +), 4 = Minimal Assistance (Subject = 75% +), 5 = Supervision, 6 = Modified [place] (Device), 7 = Complete [place] (Timely, Safely). Assessment Date/Time Source Assessment Type Assessment Skill Assessment Score Assessment Details No data available for this section
--- OUTSIDE RECORDS SUMMARY | 2024-12-09 10:33 | XMS_ITS | Clinical Summary ---
Author Organization [facility] Address [address] [place] [id number] Care Team Providers Care Ophthalmology Assistant Name Role Phone Unavailable Primary Care Provider Unavailabl e Allergies No known active allergies Medications levothyroxine (SYNTHROID) 125 MCG tablet Take 125 mcg by mouth every morning (before breakfast) Active Social History Tobacco Use Types Packs/Day Years Used Date Smoking Tobacco: Never Smokeless Tobacco: Never Alcohol Use Standard Drinks/Week Comments Yes 0 (1 standard drink = 0.6 oz pur e alcohol) social Alcohol Use Answer Date Recorded Frequency of Alcohol Consumption Not on file 04/29/2021 Average Number of Drinks Not on file 022 Frequency of Binge Drinking Not on file 04/2021 Alcohol Use Status Yes 04/29/2021 Average alcohol consumption Not on file 04/2021 Comments No Sex and Gender Information Value Date Recorded Sex Assigned at Not on file Legal Sex Female 10:52 AM ACTUARIAL TECHNICIAN Gender Identity Not on file Sexual Orientation Not on file Last Filed Vital Signs Vital Sign Reading Time Taken Comments Blood Pressure 117/75 04/29/2021 11:01 AM ACTUARIAL TECHNICIAN Pulse 95 04/29/2021 11:01 AM ACTUARIAL TECHNICIAN Temperature 37.6 C (99.6 F) 04/29/2021 11:01 AM ACTUARIAL TECHNICIAN Respiratory Rate 18 04/29/2021 11:01 AM ACTUARIAL TECHNICIAN Oxygen Saturation 97% 04/29/2021 11:01 AM ACTUARIAL TECHNICIAN Inhaled Oxygen Concentration - - Weight 71.7 kg (158 lb) 04/29/2021 10:58 AM ACTUARIAL TECHNICIAN Height 160 cm (5' 3) 04/29/2021 10:58 AM ACTUARIAL TECHNICIAN Body Mass Index 27.99 04/29/2021 10:58 AM ACTUARIAL TECHNICIAN Plan of Treatment Health Maintenance Due Date Last Done Comments HIV Screening 1960 Hepatitis C Screening ages 1 8 to 79 once 1960 MMR VACCINES (1 of 1 - Stand maki series) 1962 YEARLY WELLNESS EXAM 01/03/1964 DEPRESSION SCREENING 1973 CERVICAL CANCER SCREENING 1982 BREAST CANCER SCREENING 2001 Colon Cancer Screening 2006 LIPID TESTING 2006 Zoster Vaccine (Recombinant Vaccine) (1 of 2) 2011 COVID-19 Immunization (1 - 2 season) 2023 Influenza Vaccine 11/27/2024 ADULT TETANUS 07/02/2030 07/02/2020 RSV Vaccines (1 - 1-dose 75+ series) 01/03/2036 HEPATITIS A VACCINES Aged Out No long er eligible based on patient's age to complete this topic HEPATITIS B VACCINES Aged Out No long er eligible based on patient's age to complete this topic HIB VACCINES Aged Out No longer eligi ble based on patient's age to complete this topic HPV VACCINES Aged Out No longer eligi ble based on patient's age to complete this topic IPV VACCINES Aged Out No longer eligi ble based on patient's age to complete this topic MENINGOCOCCAL VACCINE Aged Out No ana darvin eligible based on patient's age to complete this topic Meningococcal B Vaccine Aged Out No l onger eligible based on patient's age to complete this topic Pneumococcal Vaccine: Peds t o 50 & At-Risk Patients Aged Out No longer eligible b ased on patient's age to complete this topic ROTAVIRUS VACCINES Aged Out No longer eligible based on patient's age to complete this topic Insurance [place] [phone] [employer]
== END 2024-12-09 10:19 | disposition home or self-care (01) ==
PROVIDERS: PCP Family Medicine; Visit Provider Orthopaedic Surgery
DX: M17.12 Unilateral primary osteoarthritis, left knee (principal)
CPT/HCPCS: 73564